=== PATIENT | male | born 1975 ===

== ENCOUNTER 2021-03-18 10:04 | Outpatient (REF) | payer OTHER, SELFPAY ==
--- NOTE | ~2021-03-18 | XR_ITS ---
EXAMINATION: XR LUMBOSACRAL SPINE CLINICAL INFORMATION: Right side COMPARISON: X-ray lumbar sacral spine June 2018 TECHNIQUE: Three views of the lumbosacral spine. FINDINGS: The vertebral bodies and posterior elements are normal. The disc spaces are preserved and the vertebral alignment is normal. The paraspinal soft tissues are normal. XR/XR lumbar spine 2-3V IMPRESSION: Unremarkable examination.
--- NOTE | ~2021-03-18 | XR_ITS ---
EXAMINATION: XR FOOT, RIGHT CLINICAL INFORMATION: Pain in right foot COMPARISON: None TECHNIQUE: AP, lateral, and oblique views of the right foot. FINDINGS: There is some mild soft tissue prominence over the medial aspect of the head of first metatarsal. Mild hallux valgus. Bones joints and soft tissues otherwise unremarkable XR/XR foot RT 2V IMPRESSION: Mild hallux valgus with soft tissue prominence medial to the head of the first metatarsal
[2021-03-18 11:32] LABS: MANUAL DIFF FLAG NO
[2021-03-18 11:51] LABS: Basophils Percent Auto 0.7 % (0-2); Eosinophils Absolute Auto 0.1 X10*3/uL (0.0-0.4); Eosinophils Percent Auto 1.8 % (0-4); Hematocrit 43.1 % (42-52); Hemoglobin 14.7 g/dl (14.0-18.0); Imm Gran Abs Auto 0.04 X10*3/uL (0.00-0.03); Imm Gran Pct Auto 0.7 % (0.0-0.4); Lymphocytes Absolute Auto 2.6 X10*3/uL (1.2-4.9); Lymphocytes Percent Auto 43.3 % (20-40); Mean Corpuscular HGB Conc 34.1 g/dl (31.0-36.0); Mean Corpuscular Hemoglobin 33.9 pg (27.0-33.0); Mean Corpuscular Volume 99.3 fL (80-98); Mean Platelet Volume 10.7 fL (9.4-12.4); Monocytes Absolute Auto 0.6 X10*3/uL (0.1-1.2); Monocytes Percent Auto 9.7 % (2-11); Neutrophils Absolute Auto 2.7 X10*3/uL (2.0-8.3); Neutrophils Percent Auto 43.8 % (45-73); Platelet Count 259 X10*3/uL (160-400); Red Blood Count 4.34 X10*6/uL (4.60-5.80); Red Cell Distribution Width 12.8 % (11.0-16.0); White Blood Count 6.1 X10*3/uL (4.8-10.8)
[2021-03-18 11:59] LABS: Alanine Aminotransferase 10 U/L (0-40); Albumin Level 4.5 g/dL (3.5-5.0); Alkaline Phosphatase 67 U/L (39-117); Anion Gap 11 (12-20); Aspartate Amino Transferase 16 U/L (5-37); Bilirubin Total 0.7 mg/dL (0.0-1.0); Blood Urea Nitrogen 9 mg/dL (9-16); Calcium 9.6 mg/dL (8.4-10.2); Carbon Dioxide 30 mmol/L (22-29); Chloride 104 mmol/L (96-108); Cholesterol 172 mg/dL; Estimated Glomerular Filt Rate > 60; Glucose Fasting 87 mg/dL (60-99); HDL Cholesterol 56 mg/dL; Iron 159 mcg/dL (45-160); LDL Cholesterol Calculated 85 mg/dl; Percent Iron Saturation 44 % (15-50); Potassium 4.5 mmol/L (3.3-5.1); Sodium 140 mmol/L (135-145); Total Iron Binding Capacity 364 mcg/dL (228-428); Total Protein 7.2 g/dL (6.5-8.0); Triglycerides 156 mg/dL; Unsaturated Iron Binding 205 ug/dL
[2021-03-18 12:33] LABS: Folate 13.8 ng/mL (> or = 4.0); Vitamin B12 530 pg/mL (200-900)
[2021-03-25 13:06] LABS: Vitamin D 25-OH, D2 <4 ng/mL; Vitamin D 25-OH, D3 21 ng/mL; Vitamin D 25-OH, Total 21 ng/mL (30-100)
== END 2021-03-18 10:05 | disposition home or self-care (01) ==
LOC: HO.XRAY 10:04
PROVIDERS: PCP Internal Medicine; Visit Provider Internal Medicine
DX: M54.31 Sciatica, right side (principal); M79.671 Pain in right foot; E55.9 Vitamin D deficiency, unspecified; R71.8 Other abnormality of red blood cells; E78.5 Hyperlipidemia, unspecified; D64.9 Anemia, unspecified; Z82.49 Family history of ischemic heart disease and other diseases of the circulatory system
CPT/HCPCS: 36415; 72100; 73620; 80053; 80061; 82306; 82607; 82746; 83540; 85025

== ENCOUNTER 2021-10-07 11:46 | Outpatient (REF) | payer OTHER, SELFPAY ==
[2021-10-08 14:57] LABS: H Pylori Breath Test Negative (Negative)
== END 2021-10-07 11:47 | disposition home or self-care (01) ==
LOC: HO.LNP 11:46
PROVIDERS: PCP Internal Medicine; Referring Provider Internal Medicine; Visit Provider Internal Medicine Gastroenterology
DX: K21.9 Gastro-esophageal reflux disease without esophagitis (principal); R19.4 Change in bowel habit; Z01.818 Encounter for other preprocedural examination
CPT/HCPCS: 83013; 99202

== ENCOUNTER → 2021-11-19 07:48 | Day surgery (SDC) | payer OTHER, SELFPAY ==
[2021-11-19 08:30] VITALS: BP 110/72; PULSE 56; RESP 16; TEMP 36.7; O2SAT 100; BMI 23.3
[2021-11-19] MEDS: Lactated Ringers 1,000 ML 50 ML IVCONT (08:42)
[2021-11-19 08:44] LABS: Amphetamine Screen Urine Not Detected (Not Detect); Barbiturates, Urine Not Detected (Not Detect); Benzodiazepines Screen Urine Not Detected (Not Detect); Cannabinoid Screen Urine Not Detected (Not Detect); Cocaine Screen Urine POSITIVE (Not Detect); Fentanyl, urine Not Detected (Not Detect); Opiate Screen Urine Not Detected (Not Detect); Phencyclidine Screen Urine Not Detected (Not Detect)
--- NOTE | 2021-11-19 09:11 | PC.NURSE ---
Positive urine cocaine tox screen. Evaluated by Dr Weems and Anesthesia, procedure cancelled by
== END ==
PROVIDERS: Anesthesiology; PCP Internal Medicine; Visit Provider Internal Medicine Gastroenterology
DX: R19.4 Change in bowel habit (principal); Z53.09 Procedure and treatment not carried out because of other contraindication; R82.5 Elevated urine levels of drugs, medicaments and biological substances; F14.90 Cocaine use, unspecified, uncomplicated; K21.9 Gastro-esophageal reflux disease without esophagitis; F17.210 Nicotine dependence, cigarettes, uncomplicated
CPT/HCPCS: 80307

== ENCOUNTER 2022-01-23 12:45 | Outpatient (REF) | payer OTHER, SELFPAY ==
--- NOTE | ~2022-01-23 | XR_ITS ---
EXAMINATION: XR ELBOW, RIGHT CLINICAL INFORMATION: Pain right elbow. COMPARISON: None TECHNIQUE: Right elbow is imaged in 3 views. FINDINGS: No fracture, dislocation, destructive process, or capsular effusion. Bony density is normal. No joint narrowing or erosive change. There is an olecranon spur measuring approximately 4 mm in thickness by 1.1 cm in length. XR/XR elbow RT min 3V IMPRESSION: Bulky olecranon spur.
--- NOTE | ~2022-01-23 | XR_ITS ---
EXAMINATION: XR KNEE, LEFT CLINICAL INFORMATION: Left knee pain COMPARISON: None TECHNIQUE: Three views of the left knee. FINDINGS: No fracture, dislocation, destructive process, or effusion. Hoffa's fat pad appears normal. There is no joint narrowing or erosive change or chondrocalcinosis. Axial view patella shows no lateralization or tilting. XR/XR knee LT 3V IMPRESSION: Normal left knee.
[2022-01-23 13:11] LABS: MANUAL DIFF FLAG NO
[2022-01-23 13:21] LABS: Basophils Percent Auto 0.4 % (0-2); Eosinophils Absolute Auto 0.1 X10*3/uL (0.0-0.4); Eosinophils Percent Auto 1.4 % (0-4); Hematocrit 37.5 % (42.0-52.0); Hemoglobin 12.8 g/dl (14.0-18.0); Imm Gran Abs Auto 0.01 X10*3/uL (0.00-0.03); Imm Gran Pct Auto 0.2 % (0.0-0.4); Lymphocytes Absolute Auto 2.6 X10*3/uL (1.2-4.9); Lymphocytes Percent Auto 47.2 % (20-40); Mean Corpuscular HGB Conc 34.1 g/dl (31.0-36.0); Mean Corpuscular Hemoglobin 33.4 pg (27.0-33.0); Mean Corpuscular Volume 97.9 fL (80.0-98.0); Mean Platelet Volume 10.7 fL (9.4-12.4); Monocytes Absolute Auto 0.5 X10*3/uL (0.1-1.2); Monocytes Percent Auto 8.1 % (2-11); Neutrophils Absolute Auto 2.4 x10*3/uL (2.0-8.3); Neutrophils Percent Auto 42.7 % (45-73); Platelet Count 246 X10*3/uL (160-400); Red Blood Count 3.83 X10*6/uL (4.60-5.80); White Blood Count 5.5 X10*3/uL (4.8-10.8)
[2022-01-23 13:45] LABS: Alanine Aminotransferase 11 U/L (0-40); Albumin Level 4.4 g/dL (3.5-5.0); Alkaline Phosphatase 63 U/L (39-117); Anion Gap 10 (12-20); Aspartate Amino Transferase 16 U/L (5-37); Bilirubin Total 0.4 mg/dL (0.0-1.0); Blood Urea Nitrogen 12 mg/dL (9-16); Calcium 9.5 mg/dL (8.4-10.2); Carbon Dioxide 28 mmol/L (22-29); Chloride 103 mmol/L (96-108); Estimated Glomerular Filt Rate > 60; Glucose Random 86 mg/dL (60-115); Potassium 4.2 mmol/L (3.3-5.1); Sodium 137 mmol/L (135-145); Total Protein 7.1 g/dL (6.5-8.0)
[2022-01-23 14:06] LABS: TSH reflex Free T4 0.27 uIU/mL (0.32-4.0)
[2022-01-23 14:46] LABS: Free T4 (Free Thyroxine) 1.01 ng/dL (0.71-1.85)
[2022-01-23 14:48] LABS: Folate 13.1 ng/mL (> or = 4.0); Vitamin B12 533 pg/mL (200-900)
[2022-01-26 07:46] LABS: HBS Num1 222.06 mIU/mL (0-7.99); HBc Num1 8.21 S/CO (0.00-0.79); HBsAGNum1 0.14 S/CO (0.00-0.99); HIV AB/AG Nonreactive (Nonreactive); HIV Num 1 0.07 S/CO (0.00-0.99); Hepatitis B Surface Antigen Negative (Negative); ~HepC Num1 0.08 S/CO (0.00-0.79); ~Hepatitis B Surface Antibody REACTIVE (Nonreactive); ~Hepatitis C Antibody Nonreactive (Nonreactive)
[2022-01-26 09:44] LABS: HBc Num2 8.22 S/CO; HBc Num3 8.35 S/CO; Hepatitis B Core Antibody Reactive (Nonreactive)
[2022-01-28 08:06] LABS: Hepatitis A Antibody IgM 0.32 Index (0-0.79); ~Hepatitis A Antibody IgM Nonreactive (Nonreactive)
== END 2022-01-23 12:46 | disposition home or self-care (01) ==
LOC: HO.XRAY 12:45
PROVIDERS: Internal Medicine Gastroenterology; PCP Internal Medicine; Visit Provider Nurse Practitioner Family
DX: Z11.4 Encounter for screening for human immunodeficiency virus [HIV] (principal); M25.521 Pain in right elbow; M25.562 Pain in left knee; K21.9 Gastro-esophageal reflux disease without esophagitis; R19.4 Change in bowel habit; D64.9 Anemia, unspecified; K92.0 Hematemesis
CPT/HCPCS: 36415; 73080; 73562; 80053; 82306; 82607; 82746; 83735; 84439; 84443; 85025; 86704; 86706; 86709; 86803; 87340; 87389

== ENCOUNTER 2022-02-12 10:51 | Day surgery (SDC) | payer OTHER, SELFPAY ==
[2022-02-05 16:31] VITALS: BMI 25.0
--- NOTE | 2022-02-11 09:35 | P.CONAN_ITS ---
Documented by User: Grace Lynch NP 02/11/22 09:41 HPI - Anesthesia Eval Consult details Narrative: 47yo M for Upper Endoscopy and Colonoscopy [facility] Active Problems Active Problems: All Active Problems (Updated 02/05/22 @ 13:02 by INA Last) Low vitamin D level (Acute) Low TSH level (Acute) Pruritic rash (Acute) Polyarthralgia (Acute) Ringing in left ear (Acute) Right elbow pain (Acute) Left knee pain (Acute) Altered bowel habits (Acute) Cough (Acute) Chronic GERD (Acute) Hematemesis (Acute) Right foot pain (Acute) Vertigo (Acute) Family history of hypertension (Acute) Right sided sciatica (Acute) Elevated MCV (Acute) Hypovitaminosis D (Acute) Past Medical History Medical History Chronic GERD Cough Elevated MCV Family history of hypertension Hematemesis Hypovitaminosis D Right foot pain Right sided sciatica Vertigo Family History Family History Father No problems noted. Mother Hypertension CVD (cardiovascular disease) Surgical History Surgical History History of esophagogastroduodenoscopy (EGD) No pertinent past surgical history Social History Social History Housing: Apartment Alcohol intake: current Alcohol intake frequency: a few times a month Alcohol type: beer Patient Tobacco Use Status: Current everyday Tobacco user Tobacco use type: Cigarette Cigarette Packs Per Day: 1 Cigarettes Per Day: 20.0 e-Cigarette/Vaping Use: Never Used Second Hand Smoke Exposure: Yes service: No Current occupational status: employed Current occupational exposures/hazards: No Cognitive needs: No Hearing needs: No Vision needs: Yes Meds Allergies Allergy/AdvReac Type Severity Reaction Status Date / Time No Known Allergies Allergy Verified 01/16/22 15:05 [No Known Allergies*] Exam Exam Date and Time: February 11, 2022 0935 Height,Weight and Vital Signs: Height 5 ft 6 in Weight 70.307 kg Pertinent Lab Results Pertinent Lab Results: Laboratory Tests 01/23/22 01/23/22 13:09 13:09 WBC 5.5 Hgb 12.8 L Hct 37.5 L Plt Count 246 Sodium 137 Potassium 4.2 Chloride 103 Carbon Dioxide 28 BUN 12 Creatinine 0.99 Assessment and Plan Assessment Anesthesia Assessment: Chart Reviewed Documented by User: Patel Castillo MD 02/12/22 16:09 HPI - Anesthesia Eval Consult details Narrative: 47yo M for Upper Endoscopy and Colonoscopy Substance abuse , Cocaine PMFSH Past Medical History Medical History Chronic GERD Cough Elevated MCV Family history of hypertension Hematemesis Hypovitaminosis D Right foot pain Right sided sciatica Vertigo Family History Family History Father No problems noted. Mother Hypertension CVD (cardiovascular disease) Family history of problems with anesthesia: No Surgical History Surgical History History of esophagogastroduodenoscopy (EGD) No pertinent past surgical history History of Problems with Anesthesia: No Social History Social History Housing: Apartment Alcohol intake: current Alcohol intake frequency: a few times a month Alcohol type: beer Patient Tobacco Use Status: Current everyday Tobacco user Tobacco use type: Cigarette Cigarette Packs Per Day: 1 Cigarettes Per Day: 20.0 e-Cigarette/Vaping Use: Never Used Second Hand Smoke Exposure: Yes service: No Current occupational status: employed Current occupational exposures/hazards: No Cognitive needs: No Hearing needs: No Vision needs: Yes Meds Allergies Allergy/AdvReac Type Severity Reaction Status Date / Time No Known Allergies Allergy Verified 01/16/22 15:05 [No Known Allergies*] Exam Airway Mallampati Class: III TM Dist: >3cm Neck ROM: Full Loose/Missing/Broken Teeth: Yes (Chipped teeth ) Heart: S1, S2 Lungs: b/l Assessment and Plan Assessment Anesthesia Assessment: Anesthesia Plan Discussed Final Anesthetic Review Family History of Problems with Anesthesia: No History of Problems with Anesthesia: No NPO: Yes ASA Class: III Final Preanesthetic Review: Meds/Allgs Chart Reviewed, Consent Obtained/Reviewed and Anes Risks/Benef Reviewed Patient Risk: Intermediate Procedure Risk: Intermediate Anesthetic Plan Anesthetic Plan: MAC: Disposition: Standard PACU
--- NOTE | 2022-02-12 11:28 | MHC.SHP ---
Pre-Procedural Eval Section A Date of Service: 02/12/22 Section B Chief Complaint: reflux disease,change in bowel habit, abdominal pa Relevant Family History (Specify if Yes): No Relevant Social History: Tobacco Use (coicaine use) Present Medications: see Short Stay Collaborative assessment Medical History: Significant History (Chronic GERD Cough Elevated MCV Family history of hypertension Hematemesis Hypovitaminosis D Right foot pain Right sided sciatica Vertigo) History of Previous Operations: Relevant previous surgery/procedure and date(s) (History of esophagogastroduodenoscopy (EGD)) Allergies: Allergies Allergy/AdvReac Type Severity Reaction Status Date / Time No Known Allergies Allergy Verified 01/16/22 15:05 [No Known Allergies*] Review of Systems Sugical H&P ROS: Negative: Constitution, Cardiovascular, Respiratory, Neurological, Psychiatric, Hem-Onc, Allergic/Immunologic, Gastrointestinal, Genitourinary, Musculoskeletal, Integumentary, Endocrine and Eyes/Ears/Nose/Throat Exam Surgical H&P Exam: Normal: HEENT, Normal: Heart, Normal: Lungs, Normal: Extremities, Normal: Abdomen, Normal: Skin and Normal: Neurological Plan Diagnosis/Plan: Unchanged I have reviewed the history and physical and performed a pertinent physical examination on my patient. No changes have occurred unless specified.
[2022-02-12 11:29] VITALS: BMI 25.0
[2022-02-12 11:33] VITALS: BP 116/74; PULSE 54; RESP 17; TEMP 36.6; O2SAT 99
[2022-02-12 11:39] VITALS: BMI 25.0
[2022-02-12 11:47] LABS: Amphetamine Screen Urine Not Detected (Not Detect); Barbiturates, Urine Not Detected (Not Detect); Benzodiazepines Screen Urine Not Detected (Not Detect); Cannabinoid Screen Urine Not Detected (Not Detect); Cocaine Screen Urine Not Detected (Not Detect); Fentanyl, urine Not Detected (Not Detect); Opiate Screen Urine Not Detected (Not Detect); Phencyclidine Screen Urine Not Detected (Not Detect)
[2022-02-12] MEDS: Lactated Ringers 1,000 ML 100 ML IVCONT (11:48)
--- NOTE | 2022-02-12 12:13 | PM.OP ---
Brief Operative Note Date of Service: 02/12/22 Pre-op diagnosis: abdominal pain, altered bowel habit, reflux Post-op diagnosis: same Procedure: see op note Surgeon: Chapis Weems MD Anesthesia: MAC Was an Solar Applications Development Engineer used for this Procedure?: No Estimated blood loss (mL): 0 Condition: stable Disposition: PACU
--- NOTE | 2022-02-12 12:14 | W.PM.OPN ---
Operative Note Operative Note Date of Service: 02/12/22 Narrative: Operative Information Procedure Description: EGD, Colonoscopy Indication: abdominal pain, altered bowel habit, reflux Anesthesia: MAC FLEXIBLE TRANSORAL UPPER GASTROINTESTINAL ENDOSCOPY AND COLONOSCOPY PROCEDURE NOTE UPPER ENDOSCOPY Consent: Indications for the procedure and potential complications of bleeding, perforation, reaction to medications and missed diagnosis were discussed with the patient and informed consent was obtained. Instrument: Olympus GIF H 190 J mid size upper endoscope Monitoring: Vital signs and clinical assessment, continuous EKG monitoring, Pulse oximetry, Carbon Dioxide monitoring and blood pressure monitoring were done throughout the procedure. Procedure: The patient was placed in the left lateral decubitis position and pre-procedure medications were administered and a bite block was placed. The endoscope was inserted into the mouth and advanced under direct vision to the third part of duodenum. A careful inspection was made as the upper endoscope was withdrawn including a retroflexed examination of the proximal stomach; Findings and interventions are described below. Findings: Larynx:normal Esophagus: GE junction at 38 cm, diaphragm hiatus at 38 cm, normal mucosa, bx taken from GEJ and random esophagus Stomach: Patchy erythema and erosions seen on lateral stomach wall in antrum. Biopsies were obtained. Grade 2 flap valve on retroflexed examination of the cardia. Duodenum: Normal bulb and descending duodenum, bx taken Intervention: Biopsies as noted above COLONOSCOPY Instrument: Olympus variable stiffness pediatric scope 190L Colonoscopy Monitoring: Vital signs and clinical assessment, continuous EKG monitoring, Pulse oximetry, Carbon Dioxide monitoring and blood pressure monitoring were done throughout the procedure. Colon withdrawal time was 10 minutes. Procedure: The patient was placed in the left lateral decubitis position and pre-procedure medications were administered. After a digital rectal examination of the ano-rectum, the video colonoscope was inserted into the rectum and advanced through the colon to the cecum/TI. The colonoscope was slowly withdrawn in a retrograde panoramic fashion and the colon mucosa was carefully examined including a retroflexed view of the rectum. Findings and interventions are described below. Procedure Difficulty: moderate Findings: Terminal Ileum-normal, bx taken Random colon bx taken, There appeared to be reduced colonic movement Cecum:normal Ascending Colon: few inverted diverticula seen Transverse Colon -normal Descending Colon:normal Sigmoid Colon: few small diverticula seen Rectum: Retroflexion with small internal hemorrhoids, grade I, 4-6 mm sessile polyp removed with cold forceps Anorectum - normal Colon preparation: [place] Bowel Preparation Scale Right colon; 2 Transverse colon: 3 Left colon; 2 (0 = Unprepared colon segment with mucosa not seen due to solid stool that cannot be cleared. 1 = Portion of mucosa of the colon segment seen, but other areas of the colon segment not well seen due to staining, residual stool and/or opaque liquid. 2 = Minor amount of residual staining, small fragments of stool and/or opaque liquid, but mucosa of colon segment seen well. 3 = Entire mucosa of colon segment seen well with no residual staining, small fragments of stool or opaque liquid) Impression and Post Procedure Diagnosis: Endoscopy Findings: erosive gastritis Colonoscopy Findings: colonic inertia diverticulosis internal hemorrhoids polyp Plan: Await Pathology results Repeat Colonoscopy in 5 years if adenomatous polyp, 10 yrs if hyperplastic or earlier if clinically indicated High fiber diet leaflet avoid straining at stool, epsom salts and sitz bath, anusol supps or cream if h pylori pos then treat Above findings were reviewed with the patient and relevant handouts were provided if indicated.
[2022-02-12 13:13] VITALS: BP 84/48; PULSE 64; RESP 16; TEMP 36.7; O2SAT 98
[2022-02-12 13:28] VITALS: BP 88/51; PULSE 52; RESP 14; O2SAT 99
[2022-02-12 13:43] VITALS: BP 93/58; PULSE 48; RESP 14; O2SAT 100
[2022-02-12 13:58] VITALS: BP 111/65; PULSE 48; RESP 16; O2SAT 100
[2022-02-12 14:13] VITALS: BP 117/76; PULSE 47; RESP 16; TEMP 36.2; O2SAT 99
== END 2022-02-12 14:53 | disposition home or self-care (01) ==
PROVIDERS: Nurse Practitioner; PCP Internal Medicine; Visit Provider Internal Medicine Gastroenterology
PROC: (CPT 45380; principal; 2022-02-12 12:30)
DX: K59.01 Slow transit constipation (principal); K62.1 Rectal polyp; K57.30 Diverticulosis of large intestine without perforation or abscess without bleeding; K64.0 First degree hemorrhoids; K21.9 Gastro-esophageal reflux disease without esophagitis; K29.60 Other gastritis without bleeding; K44.9 Diaphragmatic hernia without obstruction or gangrene; R79.89 Other specified abnormal findings of blood chemistry; E55.9 Vitamin D deficiency, unspecified; R42 Dizziness and giddiness; F14.90 Cocaine use, unspecified, uncomplicated; F17.210 Nicotine dependence, cigarettes, uncomplicated
CPT/HCPCS: 45380; 43239; 80307; 88305; 88342; J2250

== ENCOUNTER 2022-04-03 07:54 | Outpatient (REF) | payer OTHER, SELFPAY | END 2022-04-03 07:55 | disposition home or self-care (01) | LOC: HO.HOSX 07:54 | PROVIDERS: Visit Provider Physician Assistant | DX: Z13.89 Encounter for screening for other disorder (principal) ==

== ENCOUNTER 2022-05-22 07:37 | Outpatient (REF) | payer OTHER, SELFPAY | END 2022-05-22 07:38 | disposition home or self-care (01) | LOC: HO.HOSX 07:37 | PROVIDERS: Visit Provider Physician Assistant | DX: Z13.89 Encounter for screening for other disorder (principal) ==

== ENCOUNTER 2022-06-26 | Outpatient (REF) | payer OTHER, SELFPAY | END 2022-06-26 00:01 | disposition home or self-care (01) | LOC: HO.HOSX | PROVIDERS: Visit Provider Physician Assistant | DX: Z13.89 Encounter for screening for other disorder (principal) ==

== ENCOUNTER 2022-12-02 08:13 | Outpatient (REF) | payer OTHER, SELFPAY ==
[2022-12-02 12:06] LABS: Hematocrit 42.9 % (42.0-52.0); Hemoglobin 14.5 g/dl (14.0-18.0); Mean Corpuscular HGB Conc 33.8 g/dl (31.0-36.0); Mean Corpuscular Hemoglobin 33.6 pg (27.0-33.0); Mean Corpuscular Volume 99.5 fL (80.0-98.0); Mean Platelet Volume 10.7 fL (9.4-12.4); Platelet Count 292 X10*3/uL (160-400); Red Blood Count 4.31 X10*6/uL (4.60-5.80); Red Cell Distribution Width 12.9 % (11.0-16.0)
[2022-12-02 12:42] LABS: Free T4 (Free Thyroxine) 0.93 ng/dL (0.71-1.85); Thyroid Stimulating Hormone 0.44 uIU/mL (0.32-4.0)
[2022-12-02 12:43] LABS: Vitamin D 25-OH Total 16.7 ng/mL (>30)
[2022-12-02 13:08] LABS: Thyroid Stimulating Hormone 0.45 uIU/mL (0.32-4.0)
[2022-12-02 13:11] LABS: Anion Gap 15 (12-20)
[2022-12-02 13:16] LABS: Alanine Aminotransferase 18 U/L (0-40); Albumin Level 4.5 g/dL (3.5-5.0); Alkaline Phosphatase 73 U/L (39-117); Aspartate Amino Transferase 20 U/L (5-37); Bilirubin Direct 0.2 mg/dL (0.0-0.5); Bilirubin Total 0.5 mg/dL (0.0-1.0); Blood Urea Nitrogen 12 mg/dL (9-16); Calcium 9.5 mg/dL (8.4-10.2); Carbon Dioxide 28 mmol/L (22-29); Chloride 104 mmol/L (96-108); Cholesterol 199 mg/dL; Estimated Glomerular Filt Rate > 60; Glucose Random 94 mg/dL (60-115); HDL Cholesterol 60 mg/dL; LDL Cholesterol Calculated 119 mg/dl; Potassium 4.5 mmol/L (3.3-5.1); Sodium 142 mmol/L (135-145); Total Protein 7.1 g/dL (6.5-8.0); Triglycerides 101 mg/dL
== END 2022-12-02 08:14 | disposition home or self-care (01) ==
LOC: HO.HMGCLDS 08:13
PROVIDERS: PCP Internal Medicine; Visit Provider Internal Medicine
DX: R10.9 Unspecified abdominal pain (principal); E55.9 Vitamin D deficiency, unspecified; R79.89 Other specified abnormal findings of blood chemistry; E03.9 Hypothyroidism, unspecified
CPT/HCPCS: 36415; 80048; 80061; 80076; 82306; 84439; 84443; 85027

== ENCOUNTER 2022-12-03 14:53 | Outpatient (REF) | payer OTHER, SELFPAY ==
[2022-12-03 16:40] LABS: Vitamin D 25-OH Total 17.8 ng/mL (>30)
[2022-12-03 16:54] LABS: Folate 10.2 ng/mL (> or = 4.0); Prostate Specific Antigen 0.63 ng/mL (<0.05-4.0); Vitamin B12 740 pg/mL (200-900)
[2022-12-03 16:56] LABS: Cortisol Random 2.9 ug/dL
[2022-12-03 17:39] LABS: Appearance Urine Clear; Color Urine Yellow; Glucose Urine UA Negative (Negative); Leukocyte Esterase Urine Negative (Negative); Nitrite Urine Negative (Negative); PH 6.5 (5.0-9.0); Urine Blood Negative (Negative); Urine Ketones Negative (Negative); Urine Protein Negative (Neg-Trace)
[2022-12-05 04:28] LABS: Prolactin 6.3 ng/mL (2.0-18.0); Triiodothyronine T3 Free 3.3 pg/mL (2.3-4.2)
[2022-12-08 13:08] LABS: Triiodothyronine T3 Reverse 14 ng/dL (8-25)
== END 2022-12-03 14:54 | disposition home or self-care (01) ==
LOC: HO.LAB 14:53
PROVIDERS: Internal Medicine Gastroenterology; PCP Internal Medicine; Visit Provider Nurse Practitioner Family
DX: Z00.00 Encounter for general adult medical examination without abnormal findings (principal); Z12.5 Encounter for screening for malignant neoplasm of prostate; R30.0 Dysuria; R35.89 Other polyuria; R79.89 Other specified abnormal findings of blood chemistry; E55.9 Vitamin D deficiency, unspecified
CPT/HCPCS: 36415; 81003; 82306; 82533; 82607; 82746; 84146; 84153; 84481; 84482

== ENCOUNTER 2023-05-31 13:34 | Outpatient (AMB) | payer OTHER, SELFPAY ==
--- NOTE | 2023-05-31 13:41 | A.OFFPC_ITS ---
Vital Signs 05/31/23 13:42 Height 5 ft 6 in Weight 148 lb BMI 23.9 BP 100/62 Blood Pressure Location Lt brachial Position Sitting Pulse 65 Pulse Source Pulse Oximeter Pulse Oximetry (%) 98 Oxygen Delivery Method Room Air Intake Visit Reasons: Sinus infection Intake Note: Pt is here for ongoing sinus infection and chest congestion for about a month and getting worse. Bead Supervisor Required: No Accompanied by: Spouse Allergies No Known Allergies [No Known Allergies*] Allergy (Verified 05/31/23 13:50) Medication List - Last Reconciled 05/31/23 by Jacob Anderson PA-C acetaminophen 1,000 mg PO Q6H PRN cholecalciferol (vitamin D3) 50 mcg PO DAILY diclofenac sodium 1% (Arthritis Pain (diclofenac)) 2 grams topical QID PRN esomeprazole magnesium (Nexium) 40 mg PO DAILY sennosides-docusate sodium 8.6-50 mg (Senna-S) 1 tab-cap PO BEDTIME PRN sucralfate 1 g PO BID Tobacco use date assessed: 12/03/22 Dental Screening Dental Screen Date: 05/31/23 Did you have a dental visit in the last 12 months?: Yes Did you have a dental problem in the last 6 months where you did not have access to dental care?: No Was dental information given to patient?: Patient has dentist HPI Sinus infection HPI Details Patient is a 48-year-old male here today for sick visit. This the 1st time I am meeting this 48-year-old male with a past medical history significant for GERD, Tobacco dependency,low vitamin-D level anxiety disorder. Patient reports he has been having sinus pressure, headaches and mild cough over the last 3 weeks. Has use [id number] cough cold medication without much relief. Unfortunately continues to smoke about a pack of cigarettes per day. Otherwise denies any fever, productivity of cough ect.. [facility] Medical History Chronic GERD Cough Elevated MCV Family history of hypertension Hematemesis Hypovitaminosis D Right foot pain Right sided sciatica Vertigo Surgical History Hx of colonoscopy History of esophagogastroduodenoscopy (EGD) No pertinent past surgical history Family History Father No problems noted. Mother Hypertension CVD (cardiovascular disease) Social History Housing: Apartment Alcohol intake: current Alcohol intake frequency: a few times a month Alcohol type: beer Patient Tobacco Use Status: Current everyday Tobacco user Tobacco use type: Cigarette Cigarette Packs Per Day: 1 Cigarettes Per Day: 20.0 e-Cigarette/Vaping Use: Never Used Second Hand Smoke Exposure: Yes service: No Current occupational status: employed Current occupational exposures/hazards: No Cognitive needs: No Hearing needs: No Vision needs: Yes Questionnaire Thrive Questionnaire Date Thrive assessed: 12/03/22 DECLAN-7 AMB Questionnaire DECLAN-7 Date DECLAN - 7 assessed: 12/03/22 Source: Developed by Drs. Ish Velazco, Leda Lara, Nate Schaefer and colleagues, with an educational neema from [employer]. Review of Systems Const Denies headache(s) Eyes Denies loss of vision ENT Denies vertigo, Denies dizziness, Denies headache(s), Reports nasal discharge, Reports sinus pressure and Denies sore throat Card Denies chest pain, Denies leg edema and Denies lightheadedness Resp Reports cough, Denies hemoptysis and Denies wheezing GI Denies abdominal pain, Denies melena, Denies constipation, Denies diarrhea and Denies vomiting Denies dysuria, Denies urinary frequency and Denies urinary urgency Musc Denies arthralgias, Denies joint swelling, Denies numbness and Denies tingling Neuro Denies Abnormal speech present, Denies behavioral changes, Denies vertigo, Denies dizziness, Denies headache(s), Denies loss of vision, Denies memory loss, Denies numbness and Denies tingling Psych Denies anxiety, Denies behavioral changes, Denies depression, Denies memory loss and Denies panic attacks Michael/Lymph Denies easy bleeding and Denies easy bruising Aller/Immun Denies wheezing Physical exam (Primary Care) Vital Signs: Last Vital Signs Pulse 65 05/31/23 13:42 BP 100/62 05/31/23 13:42 Pulse Ox 98 05/31/23 13:42 Oxygen Delivery Method Room Air 05/31/23 13:42 BMI result Body Mass Index 23.9 Tobacco/Smoking Status: Tobacco use Status Tobacco use date assessed 12/03/22 05/31/23 13:47 Patient Tobacco Use Status Current everyday Tobacco 05/31/23 13:47 Tobacco use type Cigarette 05/31/23 13:47 e-Cigarette/Vaping Use Never Used 05/31/23 13:47 Thrive Assessment: Date of Thrive Assessment Date Thrive assessed 12/03/22 05/31/23 13:47 Const General: healthy appearing, no acute distress, alert and awake Nutritional Appearance: well nourished Orientation/consciousness: oriented to person, oriented to place and oriented to time HENMT Other: NASAL CONGESTION NOTED Ears: TM's normal bilaterally General nose exam: Normal nasal mucous membranes and turbinates present Face and sinus: Yes sinus tenderness Eyes Conjunctivae: conjunctivae normal Sclerae: sclerae normal Pupils: Equal, round and reactive pupils present Neck Neck: Yes no lymphadenopathy and Yes no JVD Thyroid: Thyroid normal Carotids: no bruits Resp Effort & Inspection: normal respiratory effort and not tachypneic Auscultation: no crackles, no rales, no rhonchi and no wheezes Cardio Rate: regular rate Rhythm: regular rhythm Heart sounds: no murmurs and normal S1 and S2 GI Palpation (GI): Soft to palpation, nontender, no hepatomegaly and no splenomegaly Auscultation: normal bowel sounds Skin General skin exam: no rashes or lesions noted and dry skin Neuro General: oriented to person, oriented to place and oriented to time Cranial nerves: Yes Equal, round and reactive pupils present Speech: No Abnormal speech present Gait exam (Neuro): Normal gait present Motor exam (neuro): no tremor noted Extrem Right upper extremity: full ROM Left upper extremity: full ROM Right lower extremity: full ROM; no edema Left lower extremity: full ROM; no edema Psych Mental Status: mental status grossly normal Speech and movement: Normal speech and movement present Affect: normal affect Attitude: cooperative Thought process: Normal thought process present Assessment and Plan Assessment & Plan (1) Sinusitis: Code(s): J32.9 - Chronic sinusitis, unspecified Qualifiers: Chronicity: acute Recurrence: non-recurrent Sinusitis location: frontal Qualified Code(s): J01.10 - Acute frontal sinusitis, unspecified Plan: Patient's signs symptoms most consistent with a sinus infection. Will supply patient with antibiotic and advised on nasal spray (2) Bronchitis: Code(s): J40 - Bronchitis, not specified as acute or chronic Plan: patient's cough likely secondary to postnasal drip. Though is a daily pack-a-day smoker thus will send for x-ray of chest to rule out any pulmonary infiltrate. (3) Tobacco dependence: Code(s): F17.200 - Nicotine dependence, unspecified, uncomplicated Plan: patient is willing to start nicotine patches to help him quit smoking. Orders: Orders XR chest 2V 05/31/23 J40 - Bronchitis, not specified as acute or chronic SARS-CoV2/FLU/RSV 05/31/23 J01.10 - Acute frontal sinusitis, unspecified Medications: New amoxicillin-pot clavulanate 875-125 mg 1 tab PO BID 7 days 14 tabs 0RF J01.10 - Acute frontal sinusitis, unspecified nicotine 1 patch transdermal DAILY 14 days 14 ea 0RF F17.200 - Nicotine dependence, unspecified, uncomplicated nicotine 1 patch transdermal DAILY 14 days 14 ea 0RF F17.200 - Nicotine dependence, unspecified, uncomplicated Refilled esomeprazole magnesium (Nexium) 40 mg PO DAILY 30 caps 5RF K21.9 - Gastro- esophageal reflux disease without esophagitis Coding Level of Care Code Est Pt Level 3 (36406) Diagnoses Acute non-recurrent frontal sinusitis J01.10 Chronicity: acute Recurrence: non-recurrent Sinusitis location: frontal Bronchitis J40 Tobacco dependence F17.200
[2023-05-31 13:42] VITALS: BP 100/62; PULSE 65; O2SAT 98; BMI 23.9
== END 2023-05-31 14:02 | disposition home or self-care (01) ==
PROVIDERS: PCP Internal Medicine; Visit Provider Physician Assistant
DX: J01.10 Acute frontal sinusitis, unspecified (principal); J40 Bronchitis, not specified as acute or chronic; F17.200 Nicotine dependence, unspecified, uncomplicated
CPT/HCPCS: 99213

== ENCOUNTER 2023-05-31 14:10 | Outpatient (REF) | payer OTHER, SELFPAY ==
--- NOTE | ~2023-05-31 | XR_ITS ---
EXAMINATION: XR CHEST CLINICAL INFORMATION: Bronchitis COMPARISON: None TECHNIQUE: 2 views of the chest. FINDINGS: Heart size normal. No focal consolidation to suggest pneumonia. No pleural effusion. Degenerative changes in the thoracic spine. XR/XR knee standing BI IMPRESSION: No focal consolidation to suggest pneumonia.
--- NOTE | ~2023-05-31 | XR_ITS ---
EXAMINATION: XR CHEST CLINICAL INFORMATION: Bronchitis COMPARISON: None TECHNIQUE: 2 views of the chest. FINDINGS: Heart size normal. No focal consolidation to suggest pneumonia. No pleural effusion. Degenerative changes in the thoracic spine. XR/XR chest 2V IMPRESSION: No focal consolidation to suggest pneumonia.
[2023-05-31 15:00] LABS: Influenza A PCR NEGATIVE (Negative); Influenza B PCR NEGATIVE (Negative); Resp Syncy Virus RNA Qual PCR NEGATIVE (Negative); SARS COV2 PCR INHOUSE NEGATIVE (Negative)
== END 2023-05-31 14:11 | disposition home or self-care (01) ==
LOC: HO.XRAY 14:10
PROVIDERS: PCP Physician Assistant; Visit Provider Physician Assistant
DX: J40 Bronchitis, not specified as acute or chronic (principal); J01.10 Acute frontal sinusitis, unspecified; M25.569 Pain in unspecified knee; Z20.822 Contact with and (suspected) exposure to COVID-19
CPT/HCPCS: 0241U; 71046; 73565

== ENCOUNTER 2023-06-07 16:27 | Outpatient (AMB) | payer OTHER, SELFPAY ==
[2023-06-07 16:33] VITALS: BP 110/78; BMI 24.4
--- NOTE | 2023-06-07 16:33 | MHC.PC.OV ---
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 Accompanied by: Significant Other Allergies No Known Allergies [No Known Allergies*] Allergy (Verified 06/07/23 16:53) Medication List - Last Reconciled 06/07/23 by Maria Daugherty MD acetaminophen 1,000 mg PO Q6H PRN amoxicillin-pot clavulanate 875-125 mg 1 tab PO BID 7 days nicotine 1 patch transdermal DAILY 14 days sucralfate 1 g PO BID Tobacco use date assessed: 12/03/22 Dental Screening Dental Screen Date: 06/07/23 Did you have a dental visit in the last 12 months?: Yes Did you have a dental problem in the last 6 months where you did not have access to dental care?: No Was dental information given to patient?: Patient has dentist HPI HPI Comments History of Present Illness Details Patient with chronic GERD that comes today accompanied by complaining of chronic sinusitis that has been present for over a week. No fever or cough. Will start Carafate for his GERD. Endoscopy done a year ago. For sinusitis I will order nasal spray. PFS Medical History Cough Chronic GERD Hematemesis Right foot pain Vertigo Family history of hypertension Right sided sciatica Elevated MCV Hypovitaminosis D Surgical History Hx of colonoscopy History of esophagogastroduodenoscopy (EGD) No pertinent past surgical history Family History Father No problems noted. Mother Hypertension CVD (cardiovascular disease) Social History Housing: Apartment Alcohol intake: current Alcohol intake frequency: a few times a month Alcohol type: beer Patient Tobacco Use Status: Current everyday Tobacco user Tobacco use type: Cigarette Cigarette Packs Per Day: 1 Cigarettes Per Day: 20.0 e-Cigarette/Vaping Use: Never Used Second Hand Smoke Exposure: Yes service: No Current occupational status: employed Current occupational exposures/hazards: No Cognitive needs: No Hearing needs: No Vision needs: Yes Questionnaire Thrive Questionnaire Date Thrive assessed: 12/03/22 DECLAN-7 AMB Questionnaire DECLAN-7 Date DECLAN - 7 assessed: 12/03/22 Source: Developed by Drs. Ish Velazco, Leda Lara, Nate Schaefer and colleagues, with an educational neema from [employer]. Review of Systems Const All systems reviewed & are unremarkable except as noted in HPI and below Eyes Reports no additional complaints, Denies change in vision and Denies other visual disturbances Card Denies chest pain at rest, Denies chest pain with activity, Denies edema, Denies irregular heart rhythm, Denies claudication, Denies dyspnea, Denies dyspnea on exertion, Denies orthopnea, Denies paroxysmal nocturnal dyspnea and Denies slow heart rate Resp Denies cough, Denies dyspnea and Denies dyspnea on exertion GI Denies abdominal pain, Denies change in bowel habits, Denies excessive flatus, Denies nausea and Denies vomiting Denies urinary hesitancy, Denies urinary incontinence and Denies urinary urgency Musc Denies abnormal gait, Denies atrophy, Denies deformity and Denies limited range of motion Skin/Breast Denies bleeding lesions, Denies changing lesions and Denies rash Neuro Denies abnormal gait and Denies lack of coordination Physical exam (Primary Care) Vital Signs: Last Vital Signs BP 110/78 06/07/23 16:33 BMI result Body Mass Index 24.4 Tobacco/Smoking Status: Tobacco use Status Tobacco use date assessed 12/03/22 06/07/23 16:39 Patient Tobacco Use Status Current everyday Tobacco 06/07/23 16:39 Tobacco use type Cigarette 06/07/23 16:39 e-Cigarette/Vaping Use Never Used 06/07/23 16:39 Thrive Assessment: Date of Thrive Assessment Date Thrive assessed 12/03/22 06/07/23 16:39 Eyes General: appearance normal, both eyes and all related structures Eyelids: Yes eyelids normal Conjunctivae: conjunctivae normal Neck Neck: Yes normal visual inspection and Yes supple Resp Effort & Inspection: normal respiratory effort Auscultation: clear to auscultation bilaterally Cardio Jugular venous distension: no JVD Rate: regular rate Rhythm: regular rhythm Heart sounds: S1 normal heart sound present and S2 normal heart sound present Extrem General: Yes full ROM Assessment and Plan Assessment & Plan (1) Chronic GERD: Code(s): K21.9 - Gastro-esophageal reflux disease without esophagitis Plan: Start Carafate. (2) Sinusitis: Code(s): J32.9 - Chronic sinusitis, unspecified Qualifiers: Sinusitis location: frontal Chronicity: acute Recurrence: non-recurrent Qualified Code(s): J01.10 - Acute frontal sinusitis, unspecified Plan: Start Flonase as needed. Medications: New sucralfate 10 mL PO BID 600 mL 1RF 30 days loratadine (Allergy Relief (loratadine)) 10 mg PO DAILY 30 tabs 1RF 30 days fluticasone propionate 50 mcg/actuation (Flonase Allergy Relief) administer into each nostril 1 spray intranasal DAILY 16 grams 0RF 30 days Discontinued sucralfate Discontinued Reason: Patient Completed Course 1 g PO BID 60 tabs 1RF R19.7 - Diarrhea, unspecified Coding Level of Care Code Est Pt Level 3 (67461) Diagnoses Chronic GERD K21.9 Acute non-recurrent frontal sinusitis J01.10 Sinusitis location: frontal Chronicity: acute Recurrence: non-recurrent Time Spent (min) 19
== END 2023-06-07 17:01 | disposition home or self-care (01) ==
PROVIDERS: Visit Provider Internal Medicine
DX: K21.9 Gastro-esophageal reflux disease without esophagitis (principal); J01.10 Acute frontal sinusitis, unspecified
CPT/HCPCS: 99213

== ENCOUNTER 2023-07-13 07:48 | Outpatient (AMB) | payer OTHER, SELFPAY ==
--- NOTE | 2023-07-13 07:59 | MHC.PC.OV ---
Vital Signs 07/13/23 08:00 Height 5 ft 6 in Weight 151 lb BMI 24.4 BP 110/62 Blood Pressure Location Lt brachial Position Sitting Pulse 72 Pulse Source Pulse Oximeter Pulse Oximetry (%) 98 Oxygen Delivery Method Room Air Intake Visit Reasons: Sinus infection Technology Assistant Required: Yes Technology Assistant Name: [id number] Contance Information Interpreted: non-clinical & clinical Allergies No Known Allergies [No Known Allergies*] Allergy (Verified 07/13/23 08:15) Medication List - Last Reconciled 07/13/23 by INA Michaud acetaminophen 1,000 mg PO Q6H PRN fluticasone propionate 50 mcg/actuation (Flonase Allergy Relief) 1 spray intranasal DAILY 30 days loratadine (Allergy Relief (loratadine)) 10 mg PO DAILY 30 days nicotine 1 patch transdermal DAILY 14 days sucralfate 10 mL PO BID 30 days Tobacco use date assessed: 12/03/22 Dental Screening Dental Screen Date: 07/13/23 Did you have a dental visit in the last 12 months?: Yes Did you have a dental problem in the last 6 months where you did not have access to dental care?: No Was dental information given to patient?: Patient has dentist HPI HPI Comments History of Present Illness Details 40-year-old female past medical history significant for GERD, low vitamin-D, cocaine use disorder, anxiety depression. Patient presents today for problem visit for sinus infection. Patient reports nasal congestion x1 month. Patient reports received antibiotic in May for treatment of sinus infection with minimal improvement. Patient reports recurring and nasal congestion with left side is frontal sinus pain and pressure, patient reports fevers nightly however he does not take his temperature but states he gets really warm and sweaty. Patient continues to use cocaine on the weekends. [facility] Medical History Cough Chronic GERD Hematemesis Right foot pain Vertigo Family history of hypertension Right sided sciatica Elevated MCV Hypovitaminosis D Surgical History Hx of colonoscopy History of esophagogastroduodenoscopy (EGD) No pertinent past surgical history Family History Father No problems noted. Mother Hypertension CVD (cardiovascular disease) Social History Housing: Apartment Alcohol intake: current Alcohol intake frequency: a few times a month Alcohol type: beer Patient Tobacco Use Status: Current everyday Tobacco user Tobacco use type: Cigarette Cigarette Packs Per Day: 1 Cigarettes Per Day: 20.0 e-Cigarette/Vaping Use: Never Used Second Hand Smoke Exposure: Yes service: No Current occupational status: employed Current occupational exposures/hazards: No Cognitive needs: No Hearing needs: No Vision needs: Yes Questionnaire PHQ-9 Over the last 2 weeks, how often have you been bothered by any of the following problems? 1. Little interest or pleasure in doing things: nearly every day 2. Feeling down, depressed, or hopeless: nearly every day 3. Trouble falling or staying asleep, or sleeping too much: nearly every day 4. Feeling tired or having little energy: nearly every day 5. Poor appetite or overeating: nearly every day 6. Feeling bad about yourself - or that you are a failure or have let yourself or your family down: nearly every day 7. Trouble concentrating on things, such as reading the newspaper or watching television: nearly every day 8. Moving or speaking so slowly that other people could have noticed. Or the opposite - being so fidgety or restless that you have been moving around a lot more than usual: nearly every day 9. Thoughts that you would be better off or of hurting yourself in some way: nearly every day Total score: 27 Depression Screening Interpretation: Positive Depression Screening Follow-up: Community Mental Health Worker F/U Depression Screening Done: Yes 20023 - PHQ-9 Billing: Yes Source: Developed by Drs. Ish Velazco, Leda Lara, Nate Schaefer and colleagues, with an educational neema from [employer]. Thrive Questionnaire Date Thrive assessed: 12/03/22 AUDIT C Alcohol Use Questionnaire (AUDIT-C) 1. How often do you have a drink containing alcohol?: 2-3 times a week 2. How many drinks containing alcohol do you have on a typical day when you are drinking?: 3 or 4 3. How often do you have six or more drinks on one occasion?: Never Total Score: 4 Score Reviewed/Action Taken: Yes DECLAN-7 AMB Questionnaire DECLAN-7 Date DECLAN - 7 assessed: 12/03/22 Source: Developed by Drs. Ish Velazco, Leda Lara, Nate Schaefer and colleagues, with an educational neema from [employer]. Review of Systems Const Denies chills, Denies fatigue, Reports fever(s) and Denies poor appetite Eyes Denies no additional complaints ENT Reports Normal hearing present, Denies otalgia, Reports nasal congestion, Reports nasal discharge, Reports sinus pain, Reports sinus pressure and Denies sore throat Card Denies chest pain, Denies syncope, Denies rapid heart rate and Denies dyspnea Resp Denies cough and Denies dyspnea GI Denies change in stool character, Denies constipation, Denies diarrhea, Denies nausea and Denies vomiting Denies dysuria, Denies urinary frequency and Denies urinary urgency Neuro Reports Normal hearing present, Denies confusion and Denies syncope Psych Denies confusion Endo Denies fatigue Physical exam (Primary Care) Vital Signs: Last Vital Signs Pulse 72 07/13/23 08:00 BP 110/62 07/13/23 08:00 Pulse Ox 98 07/13/23 08:00 Oxygen Delivery Method Room Air 07/13/23 08:00 BMI result Body Mass Index 24.4 Tobacco/Smoking Status: Tobacco use Status Tobacco use date assessed 12/03/22 07/13/23 08:03 Patient Tobacco Use Status Current everyday Tobacco 07/13/23 08:03 Tobacco use type Cigarette 07/13/23 08:03 e-Cigarette/Vaping Use Never Used 07/13/23 08:03 PHQ-9: PHQ-9 Score PHQ-9: Total score 27 07/13/23 08:17 Depression Screening Interpretation: Positive Depression Screening Follow-up: Community Mental Health Worker F/U Thrive Assessment: Date of Thrive Assessment Date Thrive assessed 12/03/22 07/13/23 08:03 Const General: No confusion Orientation/consciousness: No confusion HENMT Head: Yes normocephalic and Yes atraumatic General nose exam: Nasal discharge present clear Face and sinus: Yes sinus tenderness Eyes Conjunctivae: conjunctivae normal Chest Chest palpation & inspection: normal inspection of the chest Resp Effort & Inspection: normal respiratory effort Auscultation: clear to auscultation bilaterally, no crackles, no rhonchi and no wheezes Cardio Rate: regular rate Rhythm: regular rhythm Heart sounds: S1 normal heart sound present and S2 normal heart sound present GI Inspection: Yes normal to inspection Neuro General: No confusion Cranial nerves: Yes Normal hearing present Extrem General: No edema Assessment and Plan Assessment & Plan (1) Sinusitis: Code(s): J32.9 - Chronic sinusitis, unspecified Qualifiers: Chronicity: acute Recurrence: non-recurrent Sinusitis location: frontal Qualified Code(s): J01.10 - Acute frontal sinusitis, unspecified Plan: Augmentin sent to patient's pharmacy. Patient advised to continue on Flonase and Claritin and use a humidifier at night to put moisture in the ear. (2) Chronic GERD: Code(s): K21.9 - Gastro-esophageal reflux disease without esophagitis Plan: Continue on sucralfate. (3) Cocaine use disorder: Code(s): F14.10 - Cocaine abuse, uncomplicated Plan: Patient advised to stop using cocaine as he snorts this on the weekends as is could lead to ongoing sinus problems amongst other more serious problems. Plan Keep scheduled follow-up with PCP. Medications: Refilled amoxicillin-pot clavulanate 875-125 mg 1 tab PO BID 7 days 14 tabs 0RF J01.10 - Acute frontal sinusitis, unspecified Coding Level of Care Code Est Pt Level 3 (37788) Diagnoses Acute non-recurrent frontal sinusitis J01.10 Chronicity: acute Recurrence: non-recurrent Sinusitis location: frontal Chronic GERD K21.9 Cocaine use disorder F14.10
[2023-07-13 08:00] VITALS: BP 110/62; PULSE 72; O2SAT 98; BMI 24.4
== END 2023-07-13 08:24 | disposition home or self-care (01) ==
PROVIDERS: PCP Physician Assistant; Visit Provider Nurse Practitioner Family
DX: J01.10 Acute frontal sinusitis, unspecified (principal); K21.9 Gastro-esophageal reflux disease without esophagitis; F14.10 Cocaine abuse, uncomplicated
CPT/HCPCS: 99213

== ENCOUNTER 2023-08-23 09:57 | Outpatient (AMB) | payer OTHER, SELFPAY ==
[2023-08-23 11:20] VITALS: BP 110/70; PULSE 86; TEMP 36.7; O2SAT 98; BMI 23.8
--- NOTE | 2023-08-23 11:20 | MHC.OFFWIV ---
Intake Vital Signs 08/23/23 11:20 Height 5 ft 6 in Weight 66.848 kg BMI 23.8 BP 110/70 Blood Pressure Location Rt brachial Position Sitting Pulse 86 Pulse Source Pulse Oximeter Temp 98.0 F Temp Source Temporal Artery Scan Pulse Oximetry (%) 98 Oxygen Delivery Method Room Air Intake Visit Reasons: Ep, headache, congestion ([phone]) Intake Note: pt is here for c.o headache, and congestion Patient Tobacco Use Status: Current everyday Tobacco user Allergies No Known Allergies [No Known Allergies*] Allergy (Verified 08/23/23 11:20) Do you need a note to return to daycare/school/sports/work: Yes HPI HPI Comments History of Present Illness Details 48-year-old male who presents with fatigue, malaise, myalgias, congestion, frontal headache worse on the left, subjective fevers and chills that started yesterday. History of sinusitis.? No known sick contacts.? Denies chest pain, shortness of breath, nausea, vomiting, abdominal pain, vision change, dizziness, weakness, changes in bowel or urinary habits Physical exam benign NIH stroke scale 0 History and physical exam concerning for viral illness versus versus flu versus COVID versus RSV versus sinusitis ( most likely).? Unlikely pneumonia, ACS, dissection, pulmonary embolism, acute respiratory distress. Unlikely intracranial hemorrhage, stroke, posterior stroke, meningitis or encephalitis Plan at this time viral testing will discharge patient home with antibiotics. Educated patient on diagnosis and treatment plan, answered all question, patient verbalizes understanding.? At this time patient will be discharged home, advised to return with new or worsening symptoms.? Educated on worrisome signs and symptoms and when to return.? At this time I feel comfortable discharge home. [facility] Medical History Cough Chronic GERD Hematemesis Right foot pain Vertigo Family history of hypertension Right sided sciatica Elevated MCV Hypovitaminosis D Surgical History Hx of colonoscopy History of esophagogastroduodenoscopy (EGD) No pertinent past surgical history Family History Father No problems noted. Mother Hypertension CVD (cardiovascular disease) Social History Housing: Apartment Alcohol intake: current Alcohol intake frequency: a few times a month Alcohol type: beer Patient Tobacco Use Status: Current everyday Tobacco user Tobacco use type: Cigarette Cigarette Packs Per Day: 1 Cigarettes Per Day: 20.0 e-Cigarette/Vaping Use: Never Used Second Hand Smoke Exposure: Yes service: No Current occupational status: employed Current occupational exposures/hazards: No Cognitive needs: No Hearing needs: No Vision needs: Yes Review of Systems Const Details: Constitutional : No Weight loss, No Fever, No Chills, No Fatigue, No Malaise ENT/Mouth : No sore throat, No Rhinorrhea, + congestion Eyes: No Eye Pain, No Swelling, No Redness Cardiovascular : No Chest Pain, No SOB, No Dyspnea on Exertion, No Orthopnea, No Edema, No Palpitations Respiratory : No Cough, No Sputum, No Wheezing Gastrointestinal : No Nausea, No Vomiting, No Diarrhea, No Constipation, No abdominal Pain, No Hematochezia, No Melena Genitourinary : No Dysuria, No Urinary Frequency, No Hematuria, Musculoskeletal : No joint pain, No Myalgias, No Joint Swelling Skin : No Skin Lesions, No rash Neuro : No Weakness, No Numbness, No Dizziness, + Headache Psych : No Anxiety/Panic, No Depression All other systems reviewed and are negative All systems reviewed & are unremarkable except as noted in HPI and below Physical Exam Vital Signs: Last Vital Signs Temp 98.0 F 08/23/23 11:20 Pulse 86 08/23/23 11:20 BP 110/70 08/23/23 11:20 Pulse Ox 98 08/23/23 11:20 Oxygen Delivery Method Room Air 08/23/23 11:20 BMI result Body Mass Index 23.8 Vital signs stable Appearance: Alert.? Oriented X3.? No acute distress.? Head: Normocephalic, atraumatic, no step-offs or deformities Eyes: Pupils equal, round and reactive to light.? Extraocular movements intact pain-free ENT: Pharynx normal.? Neck: Normal inspection.? Neck supple.? No nuchal rigidity or meningeal signs. CVS: Normal heart rate and rhythm.? Pulses normal.? Respiratory: No respiratory distress.? Breath sounds normal.? Abdomen: Soft and nontender.? Skin: Skin warm and dry.? Normal skin color.? Normal skin turgor.? Extremities: No lower extremity edema.? No calf ttp. 5/5 strength to bilateral upper and lower extremities Neuro: Oriented X 3.? No motor deficit.? No sensory deficit. CN 2-12 intact . Normal [id number], [id number] steady tandem gait normal coordination Assessment & Plan Assessment & Plan (1) Sinusitis: Code(s): J32.9 - Chronic sinusitis, unspecified Qualifiers: Sinusitis location: frontal Chronicity: acute Recurrence: non-recurrent Qualified Code(s): J01.10 - Acute frontal sinusitis, unspecified Plan Take your medications as prescribed. If you were prescribed antibiotics today, it is important that you take your medication to their entirety, do not skip any doses, do not finish them early. Follow-up with your primary care provider this week. Return to the emergency department with new or worsening symptoms. Such as fevers, chills, chest pain, shortness of breath, nausea, vomiting, dizziness, headache, vision changes, lethargy In case of emergency call 911 Orders: Orders SARS-CoV2/FLU/RSV Today B34.9 - Viral infection, unspecified Medications: New amoxicillin-pot clavulanate 875-125 mg 1 tab PO BID 10 days 20 tabs 0RF prednisone 40 mg (2 x 20 mg) PO DAILY 10 tabs 0RF 5 days Coding Level of Care Code Est Pt Level 3 (61948) Diagnoses Acute non-recurrent frontal sinusitis J01.10 Sinusitis location: frontal Chronicity: acute Recurrence: non-recurrent
== END 2023-08-23 11:47 | disposition home or self-care (01) ==
PROVIDERS: PCP Physician Assistant; Visit Provider Physician Assistant
DX: J01.10 Acute frontal sinusitis, unspecified (principal)
CPT/HCPCS: 99213

== ENCOUNTER 2023-08-23 11:38 | Outpatient (REF) | payer OTHER, SELFPAY ==
[2023-08-23 14:47] LABS: Influenza A PCR NEGATIVE (Negative); Influenza B PCR NEGATIVE (Negative); Resp Syncy Virus RNA Qual PCR NEGATIVE (Negative); SARS COV2 PCR INHOUSE NEGATIVE (Negative)
== END 2023-08-23 11:39 | disposition home or self-care (01) ==
LOC: HO.LAB 11:38
PROVIDERS: Visit Provider Physician Assistant
DX: Z11.52 Encounter for screening for COVID-19 (principal); Z20.822 Contact with and (suspected) exposure to COVID-19; B34.9 Viral infection, unspecified
CPT/HCPCS: 0241U

== ENCOUNTER 2023-08-24 20:22 | Emergency (ER) | payer OTHER, SELFPAY ==
--- NOTE | 2023-08-24 20:49 | ED_ITS ---
HPI - Headache General Chief Complaint: General Medical Stated Complaint: headache left eye/strong headache Time Seen by Provider: 08/25/23 02:04 History of Present Illness HPI Narrative: The patient is a 48-year-old male who says that he has had a worsening left- sided headache for the last 2-3 weeks. He says he has also had a lot of nasal discharge. He has a subjective sense that he has had fevers but has not measured any fevers. He was seen at an outpatient clinic yesterday and diagnosed with possible sinusitis and started on Augmentin. He thinks he has taken about 4 doses of the Augmentin. Despite this he feels his symptoms have gotten worse. He says he does not have a history of headaches. He has photophobia. No nausea or vomiting. No neck stiffness. No significant history of headaches. He says the only medication that he usually takes is for his stomach. This medication seems to be a proton pump inhibitor. Related Data Home Medications Medication Instructions Recorded Confirmed acetaminophen 500 mg tablet 1,000 mg PO Q6H PRN pain 12/03/22 07/13/23 esomeprazole magnesium 40 mg 40 mg PO DAILY 08/23/23 capsule,delayed release Previous Rx's Medication Instructions Recorded nicotine 21 mg/24 hr daily 1 patch transdermal DAILY 14 days 05/31/23 transdermal patch #14 ea fluticasone propionate 50 1 spray intranasal DAILY 30 days 06/07/23 mcg/actuation nasal #16 grams spray,suspension (Flonase Allergy Relief) loratadine 10 mg tablet (Allergy 10 mg PO DAILY 30 days #30 tabs 06/07/23 Relief (loratadine)) sucralfate 100 mg/mL oral 10 ml PO BID 30 days #600 mL 06/07/23 suspension amoxicillin 875 mg-potassium 1 tab PO BID 10 days #20 tabs 08/23/23 clavulanate 125 mg tablet prednisone 20 mg tablet 40 mg (2 x 20 mg) PO DAILY 5 days 08/23/23 #10 tabs ibuprofen 600 mg tablet 600 mg PO QID PRN pain #14 tabs 08/25/23 Allergies Allergy/AdvReac Type Severity Reaction Status Date / Time No Known Allergies Allergy Verified 08/24/23 20:50 [No Known Allergies*] Review of Systems 2 Review of Systems: Yes all other systems are reviewed and are negative PMFSH Past Medical History Medical History Cough Chronic GERD Hematemesis Right foot pain Vertigo Family history of hypertension Right sided sciatica Elevated MCV Hypovitaminosis D Surgical History Hx of colonoscopy History of esophagogastroduodenoscopy (EGD) No pertinent past surgical history Family History Family History Father No problems noted. Mother Hypertension CVD (cardiovascular disease) Social History Social History Housing: Apartment Alcohol intake: current Alcohol intake frequency: a few times a month Alcohol type: beer Patient Tobacco Use Status: Current everyday Tobacco user Tobacco use type: Cigarette Cigarette Packs Per Day: 1 Cigarettes Per Day: 20.0 e-Cigarette/Vaping Use: Never Used Second Hand Smoke Exposure: Yes Advance Directives: No Advance Directives Information Provided: No service: No Current occupational status: employed Current occupational exposures/hazards: No Cognitive needs: No Hearing needs: No Vision needs: Yes Physical Exam 2 Vital Signs: Vital Signs: Last Vital Signs Temp 97.7 F 08/25/23 01:22 Pulse 63 08/25/23 01:22 Resp 16 08/25/23 01:22 BP 110/69 08/25/23 01:22 Pulse Ox 97 08/25/23 01:22 O2 Del Method Room Air 08/25/23 01:22 BMI result Body Mass Index 24.5 Const: Other: The patient is a slim, athletic looking 48-year-old who was awake and alert and does not appear obviously acutely ill. He does not seem toxic. HEENT: Other: Patient has some mild tenderness over the left frontal sinus and in the left temporal region. Face is symmetrical. Mucous membranes are moist. Pharynx is unremarkable. Eyes: Other: Pupils are round equal, extraocular movements are intact, no proptosis. No apparent abnormalities of any kind either of the eyes. Neck: Other: The neck is entirely supple. He can touch his chin to his chest to very easily. No adenopathy. Resp: Other: Lungs are clear bilaterally Cardio: Other: The patient has a regular rate and rhythm with no murmur Skin: Other: Skin is dry and unremarkable. Neuro: Other: The patient is awake and alert. He was interviewed with a grinder. His speech is fairly fluent. His neck is entirely supple. He seems entirely nontoxic. Extrem: Other: No peripheral edema Course Course Course Narrative: RME: 48yo M w/PMHx GERD c/o LIZARRAGA and L eye pain feels like eye wants to pop out x1 week. LIZARRAGA worse at night & admits to assoc fever. Was seen at yesterday Dx w/sinusitis Rx Abx and prednisone w/o relief, tested negative for COVID/FLU/RSV yesterday. admits to tingling in hands & blurry/tearing left eye. denies N/V Labs ordered Full HPI, ROS and PE to be performed by primary ED provider. Medications Administered Discontinued Medications Generic Name Dose Route Start Last Admin Trade Name Freq PRN Reason Stop Dose Admin Diphenhydramine HCl 25 mg 08/25/23 02:25 08/25/23 02:53 Diphenhydramine Hcl 50 Mg/Ml Vial IVPUSH 08/25/23 02:26 25 mg ONCE ONE Administration Sodium Chloride 1,000 mls @ 999 mls/hr 08/25/23 02:30 08/25/23 03:59 Ns IV 08/25/23 03:30 Infused .Q1H1M PAMELA Infusion Ketorolac Tromethamine 15 mg 08/25/23 02:25 08/25/23 02:54 Ketorolac Tromethamine 15 Mg/Ml Vial IVPUSH 08/25/23 02:26 15 mg ONCE ONE Administration Metoclopramide HCl 10 mg 08/25/23 02:25 08/25/23 02:55 Metoclopramide Hcl 10 Mg/2 Ml Vial IVPUSH 08/25/23 02:26 10 mg ONCE ONE Administration Medical Decision Making Medical Decision Making [facility] Narrative: Patient presents with a complaint of a left-sided headache. He was started on Augmentin 2 days ago and has had no improvement. Patient's pain seems to center around the left eye. Patient does not seem acutely ill clinically or toxic in anyway. His presentation and his description of his symptoms seem possibly suggestive of a migraine syndrome. The patient's white count was mildly elevated but his C-reactive protein is normal at 0.10. Given this normal C- reactive protein I do not really think there is any indication for imaging of his sinuses. He was treated with ketorolac and metoclopramide and seemed to feel much better. I think it be reasonable to discharge him to follow up with his regular doctor. They may continue the course of Augmentin. He should return if worse. Lab Data 08/24/23 21:07 08/24/23 21:07 Labs: Lab Results 08/24/23 08/25/23 08/25/23 Range/Units 21:07 02:11 02:17 WBC 11.4 H (4.8-10.8) X10*3/uL RBC 4.14 L (4.60-5.80) X10*6/uL Hgb 14.1 (14.0-18.0) g/dl Hct 40.9 L (42.0-52.0) % MCV 98.8 H (80.0-98.0) fL MCH 34.1 H (27.0-33.0) pg MCHC 34.5 (31.0-36.0) g/dl RDW 12.5 (11.0-16.0) % Plt Count 294 (160-400) X10*3/uL MPV 10.3 (9.4-12.4) fL Immature Gran % (Auto) 0.4 (0.0-0.4) % Neut % (Auto) 87.8 H (45-73) % Lymph % (Auto) 9.5 L (20-40) % [place] % (Auto) 2.2 (2-11) % Eos % (Auto) 0.0 (0-4) % Baso % (Auto) 0.1 (0-2) % Lymph # (Auto) 1.1 L (1.2-4.9) X10*3/uL [place] # (Auto) 0.3 (0.1-1.2) X10*3/uL Eos # (Auto) 0.0 (0.0-0.4) X10*3/uL Baso # (Auto) 0.0 (0.0-0.2) X10*3/uL Abs Immat Gran (auto) 0.05 H (0.00-0.03) X10*3/uL Absolute Neuts (auto) 10.0 H (2.0-8.3) x10*3/uL Absolute Nucleated RBC 0.000 (0.0-0.012) X10*3/uL Nucleated RBC % (auto) 0.0 (0.0-0.2) /100WBC ESR Cancelled Sodium 138 (135-145) mmol/L Potassium 4.7 (3.3-5.1) mmol/L Chloride 107 (96-108) mmol/L Carbon Dioxide 24 (22-29) mmol/L Anion Gap 12 (12-20) BUN 17 H (9-16) mg/dL Creatinine 0.99 (0.5-1.4) mg/dL Estim Creat Clear Calc 82.3 Estimated GFR > 60 Random Glucose 136 H (60-115) mg/dL Calcium 9.6 (8.4-10.2) mg/dL Magnesium 2.2 (1.6-2.6) mg/dL Total Bilirubin 0.2 (0.0-1.0) mg/dL Direct Bilirubin < 0.2 (0.0-0.5) mg/dL AST 16 (5-37) U/L ALT 9 (0-40) U/L Alkaline Phosphatase 74 (39-117) U/L C-Reactive Protein 0.10 (< or = 0.50) mg/dL Total Protein 7.9 (6.5-8.0) g/dL Albumin 4.5 (3.5-5.0) g/dL Influenza Type A (PCR) NEGATIVE (Negative) Influenza Type B (PCR) NEGATIVE (Negative) RSV RNA Qual (PCR) NEGATIVE (Negative) SARS-CoV-2 RNA (RT-PCR) NEGATIVE (Negative) Discharge Plan Discharge Clinical Impression: Left-sided headache Patient Disposition: Home, Self-Care Additional Instructions: Please rest and take it easy today. Please continue the antibiotic you were prescribed. And a prescription for ibuprofen to your pharmacy which you may use as needed for pain. You may also take Tylenol. Please follow-up with your regular doctor soon. Return to the emergency room a significantly worse. Prescriptions: New ibuprofen 600 mg tablet 600 mg PO QID PRN (Reason: pain) Qty: 14 0RF No Action acetaminophen 500 mg tablet 1,000 mg PO Q6H PRN (Reason: pain) sucralfate 100 mg/mL suspension 10 ml PO BID 30 Days Qty: 600 1RF loratadine [Allergy Relief (loratadine)] 10 mg tablet 10 mg PO DAILY 30 Days Qty: 30 1RF fluticasone propionate [Flonase Allergy Relief] 50 mcg/actuation spray,suspension 1 spray intranasal DAILY 30 Days Qty: 16 0RF Rx Instructions: administer into each nostril nicotine 21 mg/24 hr patch 24 hour 1 patch transdermal DAILY 14 Days Qty: 14 0RF esomeprazole magnesium 40 mg capsule,delayed release(DR/EC) 40 mg PO DAILY amoxicillin-pot clavulanate 875-125 mg tablet 1 tab PO BID 10 Days Qty: 20 0RF prednisone 20 mg tablet 40 mg PO DAILY 5 Days Qty: 10 0RF Referrals: Maria Sher MD [Primary Care Provider] - (headache) Stand Alone Forms: Work/School Release Interventions: ED Discharge Assessment Last Done: 08/25/23 05:58 Discharge Date/Time: 08/25/23 06:01
[2023-08-24 20:51] VITALS: BP 121/76; PULSE 68; RESP 18; TEMP 36.4; O2SAT 99; BMI 24.5
[2023-08-24 21:11] LABS: MANUAL DIFF FLAG NO
[2023-08-24 21:21] LABS: Basophils Percent Auto 0.1 % (0-2); Hematocrit 40.9 % (42.0-52.0); Hemoglobin 14.1 g/dl (14.0-18.0); Imm Gran Abs Auto 0.05 X10*3/uL (0.00-0.03); Imm Gran Pct Auto 0.4 % (0.0-0.4); Lymphocytes Absolute Auto 1.1 X10*3/uL (1.2-4.9); Lymphocytes Percent Auto 9.5 % (20-40); Mean Corpuscular HGB Conc 34.5 g/dl (31.0-36.0); Mean Corpuscular Hemoglobin 34.1 pg (27.0-33.0); Mean Corpuscular Volume 98.8 fL (80.0-98.0); Mean Platelet Volume 10.3 fL (9.4-12.4); Monocytes Absolute Auto 0.3 X10*3/uL (0.1-1.2); Monocytes Percent Auto 2.2 % (2-11); Neutrophils Percent Auto 87.8 % (45-73); Platelet Count 294 X10*3/uL (160-400); Red Blood Count 4.14 X10*6/uL (4.60-5.80); Red Cell Distribution Width 12.5 % (11.0-16.0); White Blood Count 11.4 X10*3/uL (4.8-10.8)
[2023-08-24 21:27] LABS: Alanine Aminotransferase 9 U/L (0-40); Albumin Level 4.5 g/dL (3.5-5.0); Alkaline Phosphatase 74 U/L (39-117); Anion Gap 12 (12-20); Aspartate Amino Transferase 16 U/L (5-37); Bilirubin Direct < 0.2 mg/dL (0.0-0.5); Bilirubin Total 0.2 mg/dL (0.0-1.0); Blood Urea Nitrogen 17 mg/dL (9-16); Calcium 9.6 mg/dL (8.4-10.2); Carbon Dioxide 24 mmol/L (22-29); Chloride 107 mmol/L (96-108); Creatinine Clr Calc Pharmacy 82.3; Estimated Glomerular Filt Rate > 60; Glucose Random 136 mg/dL (60-115); Magnesium 2.2 mg/dL (1.6-2.6); Potassium 4.7 mmol/L (3.3-5.1); Sodium 138 mmol/L (135-145); Total Protein 7.9 g/dL (6.5-8.0)
[2023-08-25 01:22] VITALS: BP 110/69; PULSE 63; RESP 16; TEMP 36.5; O2SAT 97
[2023-08-25] MEDS: diphenhydrAMINE HCL 50 MG/ML VIAL 25 MG IVPUSH (02:53)
[2023-08-25] MEDS: Ketorolac Tromethamine 15 MG/ML VIAL IVPUSH (02:54)
[2023-08-25] MEDS: Metoclopramide HCl 10 MG/2 ML VIAL IVPUSH (02:55)
[2023-08-25 02:57] LABS: Influenza A PCR NEGATIVE (Negative); Influenza B PCR NEGATIVE (Negative); Resp Syncy Virus RNA Qual PCR NEGATIVE (Negative); SARS COV2 PCR INHOUSE NEGATIVE (Negative)
[2023-08-25] MEDS: 0.9 % Sodium Chloride 1,000 ML 999 ML IV (02:58)
== END 2023-08-25 06:01 | disposition home or self-care (01) ==
PROVIDERS: Emergency Medicine; Physician Assistant; Emergency Provider Emergency Medicine; PCP Internal Medicine
DX: R51.9 Headache, unspecified (principal); R50.9 Fever, unspecified; H53.143 Visual discomfort, bilateral; F17.210 Nicotine dependence, cigarettes, uncomplicated; Z20.822 Contact with and (suspected) exposure to COVID-19; Z20.828 Contact with and (suspected) exposure to other viral communicable diseases; Z79.899 Other long term (current) drug therapy; Z71.6 Tobacco abuse counseling
CPT/HCPCS: 0241U; 36415; 80048; 80076; 83735; 85025; 86140; 96361; 96374; 96375; 99284; J1200; J1885; J2765

== ENCOUNTER 2023-09-16 13:43 | Outpatient (AMB) | payer OTHER, SELFPAY ==
--- NOTE | 2023-09-16 13:56 | MHC.PC.OV ---
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 Operator Name: [place] (spouse) Information Interpreted: non-clinical & clinical Print Project Manager: Present Accompanied by: Spouse Allergies No Known Allergies [No Known Allergies*] Allergy (Verified 09/19/23 09:19) Medication List - Last Reconciled 09/19/23 by Sam Caban MD acetaminophen 1,000 mg PO Q6H PRN esomeprazole magnesium 40 mg PO DAILY 90 days fluticasone propionate 50 mcg/actuation (Flonase Allergy Relief) 1 spray intranasal DAILY 30 days hydrocortisone 2.5% 1 appl topical BID PRN ibuprofen 600 mg PO QID PRN loratadine (Allergy Relief (loratadine)) 10 mg PO DAILY 30 days nicotine 1 patch transdermal DAILY 14 days sucralfate 10 mL PO BID 30 days Tobacco use date assessed: 09/16/23 Dental Screening Dental Screen Date: 09/16/23 Did you have a dental visit in the last 12 months?: Yes Did you have a dental problem in the last 6 months where you did not have access to dental care?: No Was dental information given to patient?: Patient has dentist HPI ED F/U for difficulty breathing, sinusitis HPI Details 48-year-old male presents to the office for a follow-up visit. I am covering for his primary care provider. He is accompanied by his who is translating for him. Patient is had 2 visits to the emergency room for headache and sinus issues. He has been treated with antibiotics on both occasions. According to the he continues to have pain in the sinus area. Also having symptoms of congestion. No fever or chills. Patient is also having a rash on the right heel that he would like evaluated. [facility] Medical History Cough Chronic GERD Hematemesis Right foot pain Vertigo Family history of hypertension Right sided sciatica Elevated MCV Hypovitaminosis D Surgical History Hx of colonoscopy History of esophagogastroduodenoscopy (EGD) No pertinent past surgical history Family History Father No problems noted. Mother Hypertension CVD (cardiovascular disease) Social History (Updated 09/16/23 @ 14:11 by PANKAJ Arias) Housing: Apartment Alcohol intake: current Alcohol intake frequency: a few times a month Alcohol type: beer Patient Tobacco Use Status: Current everyday Tobacco user Tobacco use type: Cigarette Cigarette Packs Per Day: 0.5 Cigarettes Per Day: 10.0 e-Cigarette/Vaping Use: Never Used Second Hand Smoke Exposure: Yes service: No Current occupational status: employed Current occupational exposures/hazards: No Cognitive needs: No Hearing needs: No Vision needs: Yes Questionnaire PHQ-9 Over the last 2 weeks, how often have you been bothered by any of the following problems? 1. Little interest or pleasure in doing things: several days 2. Feeling down, depressed, or hopeless: nearly every day 3. Trouble falling or staying asleep, or sleeping too much: nearly every day 4. Feeling tired or having little energy: nearly every day 5. Poor appetite or overeating: nearly every day 6. Feeling bad about yourself - or that you are a failure or have let yourself or your family down: nearly every day 7. Trouble concentrating on things, such as reading the newspaper or watching television: nearly every day 8. Moving or speaking so slowly that other people could have noticed. Or the opposite - being so fidgety or restless that you have been moving around a lot more than usual: nearly every day 9. Thoughts that you would be better off or of hurting yourself in some way: not at all Total score: 22 Source: Developed by Drs. Ish Velazco, Leda Lara, Nate Schaefer and colleagues, with an educational neema from [employer]. Thrive Questionnaire Date Thrive assessed: 09/16/23 I am a: Patient What is your living situation today?: I have a steady place to live Within the past 12 months, did the food you bought not last and you didn't have the money to get more?: Never true Within the past 12 months, did you worry whether your food would run out before you got money to buy more?: Never true Do you have trouble paying for medicines?: No Do you have trouble getting transportation to medical appointments?: No Do you have trouble paying your heating and electricity bill?: No Do you have trouble taking care of your child, family member or friend?: No Do you have trouble with day-to-day activities such as bathing, preparing meals, shopping, managing finances, etc.?: No Are you currently unemployed and looking for a job?: No Are you interested in more education?: No Currently or been in a relationship where the following occur: no concerns reported AUDIT C Alcohol Use Questionnaire (AUDIT-C) 1. How often do you have a drink containing alcohol?: 2-3 times a week 2. How many drinks containing alcohol do you have on a typical day when you are drinking?: 3 or 4 3. How often do you have six or more drinks on one occasion?: Never Total Score: 4 DECLAN-7 AMB Questionnaire DECLAN-7 Date DECLAN - 7 assessed: 09/16/23 Feeling nervous, anxious, or on edge: 3 = Nearly every day Not being able to stop or control worryin = More than half the days Worrying too much about different things: 2 = More than half the days Trouble relaxin = More than half the days Being so restless that it is hard to sit still: 1 = Several days Becoming easily annoyed or irritable: 1 = Several days Feeling afraid as if something awful might happen: 0 = Not at all Total DECLAN-7 score (0-4 normal; 5-9 mild; 10-14 moderate; 15-21 severe): 11 Source: Developed by Drs. Ish Velazco, Leda Lara, Nate Schaefer and colleagues, with an educational neema from [employer]. Physical exam (Primary Care) Vital Signs: Last Vital Signs Pulse 61 09/16/23 14:00 BP 118/64 09/16/23 14:00 Pulse Ox 98 09/16/23 14:00 Oxygen Delivery Method Room Air 09/16/23 14:00 BMI result Body Mass Index 23.6 Tobacco/Smoking Status: Tobacco use Status Tobacco use date assessed 09/16/23 09/16/23 14:15 Patient Tobacco Use Status Current everyday Tobacco 09/16/23 14:15 Tobacco use type Cigarette 09/16/23 14:15 e-Cigarette/Vaping Use Never Used 09/16/23 14:15 PHQ-9: PHQ-9 Score PHQ-9: Total score 22 09/16/23 14:15 Thrive Assessment: Date of Thrive Assessment Date Thrive assessed 09/16/23 09/16/23 14:15 Currently or been in a relationship where the following occur: no concerns reported Const General: cooperative and healthy appearing Nutritional Appearance: well nourished Orientation/consciousness: patient oriented x3 Limitations: no limitations HENMT Head: Yes normal to inspection Eyes General: appearance normal, both eyes and all related structures Neck Neck: Yes normal visual inspection Chest Chest palpation & inspection: normal palpation of entire chest wall Resp Effort & Inspection: normal respiratory effort Skin Other: Right foot: Plantar surface: Thickened erythematous rash near the calcaneal area. Neuro General: patient oriented x3 Assessment and Plan Assessment & Plan (1) Sinusitis: Code(s): J32.9 - Chronic sinusitis, unspecified Qualifiers: Sinusitis location: frontal Chronicity: acute Recurrence: non-recurrent Qualified Code(s): J01.10 - Acute frontal sinusitis, unspecified Plan: ER and walk-in reports reviewed. Patient was advised to use Flonase. If symptoms do not improve a CT scan of the face will be done. Patient's blood work shows macrocytosis. He has been consuming large quantities of alcohol and I counseled him to decrease the amount. Patient is not very motivated to quit alcohol. Risks of continues drinking explained to the patient. 15 minutes spent on counseling. (2) Eczema: Code(s): L30.9 - Dermatitis, unspecified Plan: Steroid cream prescribed. Medications: New hydrocortisone 2.5% 1 appl topical BID PRN 20 grams 0RF skin irritation Refilled sucralfate 10 mL PO BID 30 days 600 mL 1RF Coding Level of Care Code Est Pt Level 4 (63356) Diagnoses Acute non-recurrent frontal sinusitis J01.10 Sinusitis location: frontal Chronicity: acute Recurrence: non-recurrent Eczema L30.9
[2023-09-16 14:00] VITALS: BP 118/64; PULSE 61; O2SAT 98; BMI 23.6
== END 2023-09-16 14:34 | disposition home or self-care (01) ==
PROVIDERS: PCP Internal Medicine; Visit Provider Internal Medicine
DX: J01.10 Acute frontal sinusitis, unspecified (principal); L30.9 Dermatitis, unspecified
CPT/HCPCS: 99214

== ENCOUNTER 2023-10-21 14:15 | Outpatient (AMB) | payer OTHER, SELFPAY ==
--- NOTE | 2023-10-21 14:19 | MHC.PC.OV ---
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 Accompanied by: Spouse Allergies No Known Allergies [No Known Allergies*] Allergy (Verified 10/21/23 14:37) Medication List - Last Reconciled 10/21/23 by Maria Daugherty MD acetaminophen 1,000 mg PO Q6H PRN esomeprazole magnesium 40 mg PO DAILY 90 days fluticasone propionate 50 mcg/actuation (Flonase Allergy Relief) 1 spray intranasal DAILY 30 days hydrocortisone 2.5% 1 appl topical BID PRN ibuprofen 600 mg PO QID PRN loratadine (Allergy Relief (loratadine)) 10 mg PO DAILY 30 days nicotine 1 patch transdermal DAILY 14 days sucralfate 10 mL PO BID 30 days Tobacco use date assessed: 09/16/23 Dental Screening Dental Screen Date: 10/21/23 Did you have a dental visit in the last 12 months?: Yes Did you have a dental problem in the last 6 months where you did not have access to dental care?: No Was dental information given to patient?: Patient has dentist HPI HPI Comments History of Present Illness Details This is a 48-year-old male with chronic GERD, major depression and ophthalmoplegic migraines that complains of nasal congestion and frontal her leg that has been bothering him for few weeks. Went to ER and was given antibiotics with no significant response. X-ray of the sinus will be order and I will give another antibiotic. No fever. Will be referred to ENT. GERD has been stable with medications. Has mild major depression and declines treatment. Has migraines involving the I and will be referred to Neurology. No chest pain or shortness of breath. [facility] Medical History (Updated 10/21/23 @ 17:10 by Maria Daugherty MD) Cough Chronic GERD Hematemesis Right foot pain Vertigo Family history of hypertension Right sided sciatica Elevated MCV Hypovitaminosis D Surgical History Hx of colonoscopy History of esophagogastroduodenoscopy (EGD) No pertinent past surgical history Family History Father No problems noted. Mother Hypertension CVD (cardiovascular disease) Social History Housing: Apartment Alcohol intake: current Alcohol intake frequency: a few times a month Alcohol type: beer Patient Tobacco Use Status: Current everyday Tobacco user Tobacco use type: Cigarette Cigarette Packs Per Day: 0.5 Cigarettes Per Day: 10.0 e-Cigarette/Vaping Use: Never Used Second Hand Smoke Exposure: Yes service: No Current occupational status: employed Current occupational exposures/hazards: No Cognitive needs: No Hearing needs: No Vision needs: Yes Questionnaire PHQ-9 Over the last 2 weeks, how often have you been bothered by any of the following problems? 1. Little interest or pleasure in doing things: nearly every day 2. Feeling down, depressed, or hopeless: nearly every day 3. Trouble falling or staying asleep, or sleeping too much: nearly every day 4. Feeling tired or having little energy: nearly every day 5. Poor appetite or overeating: nearly every day 6. Feeling bad about yourself - or that you are a failure or have let yourself or your family down: nearly every day 7. Trouble concentrating on things, such as reading the newspaper or watching television: nearly every day 8. Moving or speaking so slowly that other people could have noticed. Or the opposite - being so fidgety or restless that you have been moving around a lot more than usual: nearly every day 9. Thoughts that you would be better off or of hurting yourself in some way: not at all Total score: 24 Depression Screening Interpretation: Positive (no suicidal thoughts) Depression Screening Follow-up: Existing condition Depression Screening Done: Yes 25206 - PHQ-9 Billing: Yes Source: Developed by Drs. Ish Velazco, Leda Lara, Nate Schaefer and colleagues, with an educational neema from [employer]. Thrive Questionnaire Date Thrive assessed: 10/21/23 I am a: Patient What is your living situation today?: I have a steady place to live Within the past 12 months, did the food you bought not last and you didn't have the money to get more?: Never true Within the past 12 months, did you worry whether your food would run out before you got money to buy more?: Never true Do you have trouble paying for medicines?: No Do you have trouble getting transportation to medical appointments?: No Do you have trouble paying your heating and electricity bill?: No Do you have trouble taking care of your child, family member or friend?: No Do you have trouble with day-to-day activities such as bathing, preparing meals, shopping, managing finances, etc.?: No Are you currently unemployed and looking for a job?: No Are you interested in more education?: No Please select the resources that you would like help with: None Currently or been in a relationship where the following occur: no concerns reported THRIVE Score: 0 AUDIT C Alcohol Use Questionnaire (AUDIT-C) 1. How often do you have a drink containing alcohol?: Monthly or less 2. How many drinks containing alcohol do you have on a typical day when you are drinking?: 1 or 2 3. How often do you have six or more drinks on one occasion?: Never Total Score: 1 Score Reviewed/Action Taken: No DECLAN-7 AMB Questionnaire DECLAN-7 Date DECLAN - 7 assessed: 09/16/23 Feeling nervous, anxious, or on edge: 3 = Nearly every day Not being able to stop or control worryin = Nearly every day Worrying too much about different things: 3 = Nearly every day Trouble relaxin = Nearly every day Being so restless that it is hard to sit still: 3 = Nearly every day Becoming easily annoyed or irritable: 3 = Nearly every day Feeling afraid as if something awful might happen: 1 = Several days Total DECLAN-7 score (0-4 normal; 5-9 mild; 10-14 moderate; 15-21 severe): 19 Source: Developed by Drs. Ish Velazco, Leda Lara, Nate Schaefer and colleagues, with an educational neema from [employer]. DECLAN-7 Assessment Billing DECLAN-7 Assessment Tool: DECLAN-7 Assessment 51100 Review of Systems Const All systems reviewed & are unremarkable except as noted in HPI and below Eyes Reports no additional complaints, Denies change in vision and Denies other visual disturbances Card Denies chest pain at rest, Denies chest pain with activity, Denies edema, Denies irregular heart rhythm, Denies claudication, Denies dyspnea, Denies dyspnea on exertion, Denies orthopnea, Denies paroxysmal nocturnal dyspnea and Denies slow heart rate Resp Denies cough, Denies dyspnea and Denies dyspnea on exertion GI Denies abdominal pain, Denies change in bowel habits, Denies excessive flatus, Denies nausea and Denies vomiting Denies urinary hesitancy, Denies urinary incontinence and Denies urinary urgency Musc Denies abnormal gait, Denies atrophy, Denies deformity and Denies limited range of motion Skin/Breast Denies bleeding lesions, Denies changing lesions and Denies rash Neuro Denies abnormal gait, Denies behavioral changes and Denies lack of coordination Psych Denies behavioral changes Physical exam (Primary Care) Vital Signs: Last Vital Signs BP 110/72 10/21/23 14:21 BMI result Body Mass Index 23.2 Tobacco/Smoking Status: Tobacco use Status Tobacco use date assessed 09/16/23 10/21/23 14:29 Patient Tobacco Use Status Current everyday Tobacco 10/21/23 14:29 Tobacco use type Cigarette 10/21/23 14:29 e-Cigarette/Vaping Use Never Used 10/21/23 14:29 PHQ-9: PHQ-9 Score PHQ-9: Total score 24 10/21/23 14:50 Depression Screening Interpretation: Positive (no suicidal thoughts) Depression Screening Follow-up: Existing condition Thrive Assessment: Date of Thrive Assessment Date Thrive assessed 10/21/23 10/21/23 14:29 Currently or been in a relationship where the following occur: no concerns reported Eyes General: appearance normal, both eyes and all related structures Eyelids: Yes eyelids normal Conjunctivae: conjunctivae normal Neck Neck: Yes normal visual inspection and Yes supple Resp Effort & Inspection: normal respiratory effort Auscultation: clear to auscultation bilaterally Cardio Jugular venous distension: no JVD Rate: regular rate Rhythm: regular rhythm Heart sounds: S1 normal heart sound present and S2 normal heart sound present Extrem General: Yes full ROM Assessment and Plan Assessment & Plan (1) Ophthalmoplegic migraine: Code(s): G43.B0 - Ophthalmoplegic migraine, not intractable Plan: Referred to neurology. (2) Chronic GERD: Code(s): K21.9 - Gastro-esophageal reflux disease without esophagitis Plan: Continue PPIs. (3) Sinusitis: Code(s): J32.9 - Chronic sinusitis, unspecified Qualifiers: Sinusitis location: frontal Chronicity: acute Recurrence: non-recurrent Qualified Code(s): J01.10 - Acute frontal sinusitis, unspecified Plan: X-ray ordered. Start antibiotics. Referred to ENT. (4) Mild major depression: Code(s): F32.0 - Major depressive disorder, single episode, mild Plan: Declined treatment. Orders: Orders Complete Blood Count Auto Diff Today R63.4 - Abnormal weight loss Comprehensive Met. Panel Today R63.4 - Abnormal weight loss Thyroid Stimulating Hormone Today R63.4 - Abnormal weight loss Referrals Ear/Nose/Throat Referral J01.10 - Acute frontal sinusitis, unspecified Neurology Referral G43.B0 - Ophthalmoplegic migraine, not intractable Medications: New sulfamethoxazole-trimethoprim 800-160 mg (Bactrim DS) 1 tab PO BID 3 days 6 tabs 0RF J01.10 - Acute frontal sinusitis, unspecified Refilled hydrocortisone 2.5% 1 appl topical BID PRN 20 grams 0RF skin irritation nicotine 1 patch transdermal DAILY 14 days 14 ea 0RF F17.200 - Nicotine dependence, unspecified, uncomplicated loratadine (Allergy Relief (loratadine)) 10 mg PO DAILY 30 days 30 tabs 1RF Coding Level of Care Code Est Pt Level 4 (58434) Diagnoses Ophthalmoplegic migraine G43.B0 Chronic GERD K21.9 Acute non-recurrent frontal sinusitis J01.10 Sinusitis location: frontal Chronicity: acute Recurrence: non-recurrent Mild major depression F32.0 Additional Codes DECLAN-7 Assessment Billing - DECLAN-7 Assessment Tool: DECLAN-7 Assessment 89374 ([id number]) Time Spent (min) 23
[2023-10-21 14:21] VITALS: BP 110/72; BMI 23.2
== END 2023-10-21 14:47 | disposition home or self-care (01) ==
PROVIDERS: PCP Internal Medicine; Visit Provider Internal Medicine
DX: G43.B0 Ophthalmoplegic migraine, not intractable (principal); K21.9 Gastro-esophageal reflux disease without esophagitis; J01.10 Acute frontal sinusitis, unspecified; F32.0 Major depressive disorder, single episode, mild
CPT/HCPCS: 99214

== ENCOUNTER 2023-10-21 15:00 | Outpatient (REF) | payer OTHER, SELFPAY ==
--- NOTE | ~2023-10-21 | XR_ITS ---
EXAMINATION: XR SINUSES CLINICAL INFORMATION: Chronic sinusitis COMPARISON: None available. TECHNIQUE: 3 views of the sinuses were obtained. FINDINGS: Visualized paranasal sinuses appear clear. No air-fluid levels. XR/XR sinus min 3V IMPRESSION: Visualized paranasal sinuses appear clear. If clinical concern for sinusitis persists, CT sinuses be more sensitive for evaluation.
[2023-10-21 15:13] LABS: MANUAL DIFF FLAG NO
[2023-10-21 15:25] LABS: Basophils Absolute Auto 0.1 X10*3/uL (0.0-0.2); Basophils Percent Auto 0.8 % (0-2); Eosinophils Absolute Auto 0.3 X10*3/uL (0.0-0.4); Eosinophils Percent Auto 5.6 % (0-4); Hematocrit 40.8 % (42.0-52.0); Hemoglobin 13.9 g/dl (14.0-18.0); Imm Gran Abs Auto 0.02 X10*3/uL (0.00-0.03); Imm Gran Pct Auto 0.3 % (0.0-0.4); Lymphocytes Absolute Auto 2.5 X10*3/uL (1.2-4.9); Lymphocytes Percent Auto 41.2 % (20-40); Mean Corpuscular HGB Conc 34.1 g/dl (31.0-36.0); Mean Corpuscular Hemoglobin 33.2 pg (27.0-33.0); Mean Corpuscular Volume 97.4 fL (80.0-98.0); Mean Platelet Volume 9.9 fL (9.4-12.4); Monocytes Absolute Auto 0.6 X10*3/uL (0.1-1.2); Monocytes Percent Auto 10.1 % (2-11); Neutrophils Absolute Auto 2.5 x10*3/uL (2.0-8.3); Platelet Count 281 X10*3/uL (160-400); Red Blood Count 4.19 X10*6/uL (4.60-5.80); Red Cell Distribution Width 13.2 % (11.0-16.0); White Blood Count 6.1 X10*3/uL (4.8-10.8)
[2023-10-21 16:11] LABS: Alanine Aminotransferase 15 U/L (0-40); Albumin Level 4.3 g/dL (3.5-5.0); Alkaline Phosphatase 69 U/L (39-117); Anion Gap 11 (12-20); Aspartate Amino Transferase 16 U/L (5-37); Bilirubin Total 0.5 mg/dL (0.0-1.0); Blood Urea Nitrogen 14 mg/dL (9-16); Calcium 9.5 mg/dL (8.4-10.2); Carbon Dioxide 32 mmol/L (22-29); Chloride 102 mmol/L (96-108); Estimated Glomerular Filt Rate > 60; Glucose Random 94 mg/dL (60-115); Potassium 4.5 mmol/L (3.3-5.1); Sodium 140 mmol/L (135-145); Total Protein 7.1 g/dL (6.5-8.0)
[2023-10-21 16:26] LABS: Thyroid Stimulating Hormone 0.55 uIU/mL (0.32-4.0)
== END 2023-10-21 15:01 | disposition home or self-care (01) ==
LOC: HO.XRAY 15:00
PROVIDERS: PCP Internal Medicine; Visit Provider Internal Medicine
DX: R63.4 Abnormal weight loss (principal); J32.9 Chronic sinusitis, unspecified
CPT/HCPCS: 36415; 70220; 80053; 84443; 85025

== ENCOUNTER 2023-10-22 12:05 | Outpatient (AMB) | payer OTHER, SELFPAY ==
--- NOTE | 2023-10-22 12:17 | A.OFFVIS_ITS ---
Intake Vital Signs 10/22/23 12:20 Height 5 ft 6 in Weight 142 lb BMI 22.9 BP 107/59 L Blood Pressure Location Lt brachial Position Sitting Pulse 65 Intake Visit Reasons: Gastroesophageal reflux disease (GERD) Intake Note: Patient follow up for GERD. Patient cc: nauseas, abdominal pain, acid reflex with burning sensation and some diarrhea, also patient said he needed another medication for acid reflex. Manager Utility Required: No Accompanied by: Spouse Allergies No Known Allergies [No Known Allergies*] Allergy (Verified 10/22/23 12:17) HPI Gastroesophageal reflux disease (GERD) HPI Details 48 yr old m with low vit D being seen fo r f/u RECAP: he has epigastric pain, many yeARS worse with food denies nausea or vomiting no weight loss appetite is poor he has heartburn he has constipation, he has hard stool and has to push stool hard- other times feels like diarrhea no blood in stool he is from [facility] uses cocaine, smoker, H pylori negative: 09/2021 Hep B --prior exposure Hep C and HIV negative mild anemia on labs EGD/colo 02/2022 Endoscopy Findings: erosive gastritis Colonoscopy Findings: colonic inertia diverticulosis internal hemorrhoids polyp Path: A. Duodenum, biopsy: Duodenal mucosa with mildly increased intraepithelial lymphocytes and preserved villous architecture. B. Stomach, biopsy: Antral-type and oxyntic mucosa with mild chronic inactive inflammation and intestinal metaplasia; negative for dysplasia; no Helicobacter organisms seen. C. GE junction, biopsy: - Cardiofundic-type mucosa with mild chronic inactive inflammation; no intestinal metaplasia seen. - Squamous mucosa within normal limits. D. Esophagus, random, biopsy: Squamous epithelium within normal limits; no inflammation seen. E. Terminal ileum, biopsy: Terminal ileal mucosa within normal limits. F. Colon, random, biopsy: Colonic mucosa within normal limits. G. Rectum, polypectomy: Hyperplastic mucosal polyp. INTERIM: he has been having sinus and mucous issues he feels the mucous is going down and irritating his throat he is having abdominal pain and reflux he last used cocaine 4 weeks ago pain can be worse with food omeprazole is not helping drinking 2-3 beers a week he goes between diarrhea and constipation no blood in stool he is losing weight, 10# over 2 months EXAM: GENERAL: The patient is thin VITAL SIGNS:see workflow HEENT: Nonicteric sclerae, PERRLA, EOMI. Oropharynx clear. Moist mucous membranes. Conjunctivae appear well perfused. No thyroid mass. CHEST: Chest wall is nontender. HEART: Regular rate and rhythm without murmurs. LUNGS: Clear to auscultation bilaterally. ABDOMEN: Soft, positive bowel sounds, tender suprapubic area, no organomegaly.no flank tenderness SKIN: No rash, no excessive bruising, petechiae, or purpura. NEUROLOGIC: Cranial nerves II-XII intact without motor/sensory deficit. All other systems reviewed and are negative. A/P: 1/ epigastric pain, prob 2/2 combination of cocaine use, smoking, 2/ post nasal drip PLAN: 1/ changed to pantoprazole, refill on zapata cralfate, as helps 2/ advised on improtance of lifestyle mo dification, stopping cocaine use, smoking, risks of CO, stroke etc 3/ refilled flonase and loratadine, 4/ EGD for assessment 5/ check hep c serology [facility] Medical History Cough Chronic GERD Hematemesis Right foot pain Vertigo Family history of hypertension Right sided sciatica Elevated MCV Hypovitaminosis D Surgical History Hx of colonoscopy History of esophagogastroduodenoscopy (EGD) No pertinent past surgical history Family History Father No problems noted. Mother Hypertension CVD (cardiovascular disease) Social History Housing: Apartment Alcohol intake: current Alcohol intake frequency: a few times a month Alcohol type: beer Patient Tobacco Use Status: Current everyday Tobacco user Tobacco use type: Cigarette Cigarette Packs Per Day: 0.5 Cigarettes Per Day: 10.0 e-Cigarette/Vaping Use: Never Used Second Hand Smoke Exposure: Yes service: No Current occupational status: employed Current occupational exposures/hazards: No Cognitive needs: No Hearing needs: No Vision needs: Yes Physical Exam Vital Signs: Last Vital Signs Pulse 65 10/22/23 12:20 BP 107/59 L 10/22/23 12:20 BMI result Body Mass Index 22.9 Assessment & Plan Assessment & Plan (1) Chronic GERD: Code(s): K21.9 - Gastro-esophageal reflux disease without esophagitis Plan: PLAN: 1/ changed to pantoprazole, refill on sucralfate, as helps 2/ advised on improtance of lifestyle modification, stopping cocaine use, smoking, risks of CO, stroke etc 3/ refilled flonase and loratadine, 4/ EGD for assessment (2) Post-nasal drip: Code(s): R09.82 - Postnasal drip Plan: PLAN: 1/ changed to pantoprazole, refill on sucralfate, as helps 2/ advised on improtance of lifestyle modification, stopping cocaine use, smoking, risks of CO, stroke etc 3/ refilled flonase and loratadine, 4/ EGD for assessment (3) Epigastric abdominal pain: Code(s): R10.13 - Epigastric pain Plan: PLAN: 1/ changed to pantoprazole, refill on sucralfate, as helps 2/ advised on improtance of lifestyle modification, stopping cocaine use, smoking, risks of CO, stroke etc 3/ refilled flonase and loratadine, 4/ EGD for assessment Orders: Orders Hepatitis A,B,C Profile Today K21.9 - Gastro-esophageal reflux disease without esophagitis, R09.82 - Postnasal drip, R10.13 - Epigastric pain Medications: New pantoprazole 40 mg PO DAILY 90 tabs 1RF Refilled loratadine (Allergy Relief (loratadine)) 10 mg PO DAILY 30 days 30 tabs 1RF fluticasone propionate 50 mcg/actuation (Flonase Allergy Relief) administer into each nostril 1 spray intranasal DAILY 30 days 16 grams 0RF sucralfate 10 mL PO BID 30 days 600 mL 1RF Discontinued esomeprazole magnesium Discontinued Reason: Doctor's Order 40 mg PO DAILY 90 days 90 caps 0RF Coding Level of Care Code Est Pt Level 4 (94841) Diagnoses Chronic GERD K21.9 Post-nasal drip R09.82 Epigastric abdominal pain R10.13
[2023-10-22 12:20] VITALS: BP 107/59; PULSE 65; BMI 22.9
== END 2023-10-22 12:46 | disposition home or self-care (01) ==
PROVIDERS: PCP Internal Medicine; Visit Provider Internal Medicine Gastroenterology
DX: K21.9 Gastro-esophageal reflux disease without esophagitis (principal); R09.82 Postnasal drip; R10.13 Epigastric pain
CPT/HCPCS: 99214

== ENCOUNTER → 2023-10-22 12:05 | Outpatient (BNVA) | payer OTHER, SELFPAY | PROVIDERS: PCP Internal Medicine; Visit Provider Internal Medicine Gastroenterology ==

== ENCOUNTER 2023-11-03 11:31 | Outpatient (AMB) | payer OTHER, SELFPAY ==
[2023-11-03 11:39] VITALS: BP 94/58; PULSE 67; O2SAT 98; BMI 23.6
--- NOTE | 2023-11-03 11:39 | MHC.PC.OV ---
Vital Signs 11/03/23 11:39 Height 5 ft 6 in Weight 146 lb 6 oz BMI 23.6 BP 94/58 L Blood Pressure Location Lt brachial Position Sitting Pulse 67 Pulse Source Pulse Oximeter Pulse Oximetry (%) 98 Oxygen Delivery Method Room Air Intake Visit Reasons: Sinus issues Intake Note: Dr. Meadows's patient is presenting with a sinus issue persisting for over three months. Liability Claims Examiner Required: No Accompanied by: Self / Same As Patient Allergies No Known Allergies [No Known Allergies*] Allergy (Verified 11/03/23 11:47) Medication List - Last Reconciled 11/03/23 by Jacob Anderson PA-C acetaminophen 1,000 mg PO Q6H PRN fluticasone propionate 50 mcg/actuation (Flonase Allergy Relief) 1 spray intranasal DAILY 30 days hydrocortisone 2.5% 1 appl topical BID PRN ibuprofen 600 mg PO QID PRN loratadine (Allergy Relief (loratadine)) 10 mg PO DAILY 30 days nicotine 1 patch transdermal DAILY 14 days pantoprazole 40 mg PO DAILY sucralfate 10 mL PO BID 30 days sulfamethoxazole-trimethoprim 800-160 mg (Bactrim DS) 1 tab PO BID 3 days Tobacco use date assessed: 09/16/23 HPI Sinus issues HPI Details Patient is a 48-year-old male here today for a problem visit. This the 2nd time I am meeting this 48-year-old male with a past medical history significant for GERD, Tobacco dependency,low vitamin-D level anxiety disorder. Patient reports he has been having sinus pressure, headaches and mild cough over the last 3 months. Has use [id number] cough cold medication without much relief. He does report some temporary relief of his sinus pressure, headache and nasal congestion when on antibiotics. He reports he has stopped working and now on FMLA because of his sinus issues and headaches. Unfortunately continues to smoke about a pack of cigarettes per day. He did recently get a sinus x-ray that was essentially clear. CT sinuses recommended. Has referral to ENT specialist and awaiting appointment [facility] Medical History Cough Chronic GERD Hematemesis Right foot pain Vertigo Family history of hypertension Right sided sciatica Elevated MCV Hypovitaminosis D Surgical History Hx of colonoscopy History of esophagogastroduodenoscopy (EGD) No pertinent past surgical history Family History Father No problems noted. Mother Hypertension CVD (cardiovascular disease) Social History Housing: Apartment Alcohol intake: current Alcohol intake frequency: a few times a month Alcohol type: beer Patient Tobacco Use Status: Current everyday Tobacco user Tobacco use type: Cigarette Cigarette Packs Per Day: 0.5 Cigarettes Per Day: 10.0 e-Cigarette/Vaping Use: Never Used Second Hand Smoke Exposure: Yes service: No Current occupational status: employed Current occupational exposures/hazards: No Cognitive needs: No Hearing needs: No Vision needs: Yes Questionnaire Thrive Questionnaire Date Thrive assessed: 10/21/23 DECLAN-7 AMB Questionnaire DECLAN-7 Date DECLAN - 7 assessed: 09/16/23 Source: Developed by Drs. Ish Velazco, Leda Lara, Nate Schaefer and colleagues, with an educational neema from [employer]. Review of Systems Const Denies headache(s) Eyes Denies loss of vision ENT Denies vertigo, Denies dizziness, Denies headache(s) and Denies sore throat Card Denies chest pain, Denies leg edema and Denies lightheadedness Resp Denies cough, Denies hemoptysis and Denies wheezing GI Denies abdominal pain, Denies melena, Denies constipation, Denies diarrhea and Denies vomiting Denies dysuria, Denies urinary frequency and Denies urinary urgency Musc Denies arthralgias, Denies joint swelling, Denies numbness and Denies tingling Neuro Denies Abnormal speech present, Denies behavioral changes, Denies vertigo, Denies dizziness, Denies headache(s), Denies loss of vision, Denies memory loss, Denies numbness and Denies tingling Psych Denies anxiety, Denies behavioral changes, Denies depression, Denies memory loss and Denies panic attacks Michael/Lymph Denies easy bleeding and Denies easy bruising Aller/Immun Denies wheezing Physical exam (Primary Care) Vital Signs: Last Vital Signs Pulse 67 11/03/23 11:39 BP 94/58 L 11/03/23 11:39 Pulse Ox 98 11/03/23 11:39 Oxygen Delivery Method Room Air 11/03/23 11:39 BMI result Body Mass Index 23.6 Tobacco/Smoking Status: Tobacco use Status Tobacco use date assessed 09/16/23 11/03/23 11:41 Patient Tobacco Use Status Current everyday Tobacco 11/03/23 11:41 Tobacco use type Cigarette 11/03/23 11:41 e-Cigarette/Vaping Use Never Used 11/03/23 11:41 Thrive Assessment: Date of Thrive Assessment Date Thrive assessed 10/21/23 11/03/23 11:41 Const General: healthy appearing, no acute distress, alert and awake Nutritional Appearance: well nourished Orientation/consciousness: oriented to person, oriented to place and oriented to time HENMT Other: NOTABLE RHINORRHEA TODAY IN OFFICE Ears: TM's normal bilaterally General nose exam: mucous membranes and turbinates abnormal and Nasal discharge present Eyes Conjunctivae: conjunctivae normal Sclerae: sclerae normal Pupils: Equal, round and reactive pupils present Neck Neck: Yes no lymphadenopathy and Yes no JVD Thyroid: Thyroid normal Carotids: no bruits Resp Effort & Inspection: normal respiratory effort and not tachypneic Auscultation: no crackles, no rales, no rhonchi and no wheezes Cardio Rate: regular rate Rhythm: regular rhythm Heart sounds: no murmurs and normal S1 and S2 GI Palpation (GI): Soft to palpation, nontender, no hepatomegaly and no splenomegaly Auscultation: normal bowel sounds Skin General skin exam: no rashes or lesions noted and dry skin Neuro General: oriented to person, oriented to place and oriented to time Cranial nerves: Yes Equal, round and reactive pupils present Speech: No Abnormal speech present Gait exam (Neuro): Normal gait present Motor exam (neuro): no tremor noted Extrem Right upper extremity: full ROM Left upper extremity: full ROM Right lower extremity: full ROM; no edema Left lower extremity: full ROM; no edema Psych Mental Status: mental status grossly normal Speech and movement: Normal speech and movement present Affect: normal affect Attitude: cooperative Thought process: Normal thought process present Assessment and Plan Assessment & Plan (1) Chronic sinusitis: Code(s): J32.9 - Chronic sinusitis, unspecified Qualifiers: Sinusitis location: frontal Qualified Code(s): J32.1 - Chronic frontal sinusitis Plan: Patient with several month history continued nasal rhinorrhea, sinus pressure and headaches. Has been on multiple rounds of antibiotics, using antihistamine and nasal sprays without much relief. They deny having any pets her rugs in the household. Will supply patient with prednisone taper, new antibiotic and alternative allergy medication(singular), considering RAST allergy panel. Patient does report that allergy medication was somewhat helpful though continues with sinus pressure and headache. Does have a referral to ENT and awaiting call for an appointment. Orders: Orders CT sinus wo IV con 11/03/23 J32.1 - Chronic frontal sinusitis Medications: New prednisone take 3 tabs x 3 days , take 2 tabs x 3 days , take 1 tab x 3 days 10 mg PO DIRECTED 9 days 18 tabs 0RF J32.1 - Chronic frontal sinusitis montelukast 10 mg PO DAILY 90 days 90 tabs 1RF J32.1 - Chronic frontal sinusitis doxycycline monohydrate 100 mg PO BID 7 days 14 caps 0RF J32.1 - Chronic frontal sinusitis ferrous sulfate 325 mg PO DAILY 30 days 30 tabs 1RF D50.9 - Iron deficiency anemia, unspecified On Hold loratadine (Allergy Relief (loratadine)) Hold Comment: Doctor's Order 10 mg PO DAILY 30 days 30 tabs 1RF Coding Level of Care Code Est Pt Level 4 (81300) Diagnoses Chronic frontal sinusitis J32.1 Sinusitis location: frontal
== END 2023-11-03 12:03 | disposition home or self-care (01) ==
PROVIDERS: PCP Internal Medicine; Visit Provider Physician Assistant
DX: J32.1 Chronic frontal sinusitis (principal)
CPT/HCPCS: 99214

== ENCOUNTER 2023-12-13 15:50 | Outpatient (AMB) | payer OTHER, SELFPAY ==
[2023-12-13 15:52] VITALS: BP 110/70; BMI 23.7
--- NOTE | 2023-12-13 15:52 | A.OFFPC_ITS ---
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 Accompanied by: Spouse, children Allergies No Known Allergies [No Known Allergies*] Allergy (Verified 12/13/23 16:21) Medication List - Last Reconciled 12/13/23 by Maria Daugherty MD acetaminophen 1,000 mg PO Q6H PRN ferrous sulfate 325 mg PO DAILY 30 days fluticasone propionate 50 mcg/actuation (Flonase Allergy Relief) 1 spray intranasal DAILY 30 days hydrocortisone 2.5% 1 appl topical BID PRN ibuprofen 600 mg PO QID PRN loratadine (Allergy Relief (loratadine)) 10 mg PO DAILY 30 days montelukast 10 mg PO DAILY 90 days nicotine 1 patch transdermal DAILY 14 days pantoprazole 40 mg PO DAILY sucralfate 10 mL PO BID 30 days Tobacco use date assessed: 09/16/23 Dental Screening Dental Screen Date: 10/21/23 HPI HPI Comments History of Present Illness Details This is a 48-year-old male with mild major depression that comes accompanied by and 2 kids for his physical exam. Depression has been in remission. Last colonoscopy was 2021 showing hyperplastic polyp and internal hemorrhoids. Denies any chest pain or shortness of breath. Complains of earnestine jacy that involve the left eye and left side of the face and are associated with rhinitis. PFSH Medical History (Updated 12/13/23 @ 16:33 by Maria Daugherty MD) Cough Chronic GERD Hematemesis Right foot pain Vertigo Family history of hypertension Right sided sciatica Elevated MCV Hypovitaminosis D Surgical History (Updated 12/13/23 @ 16:26 by Maria Daugherty MD) S/P right rotator cuff repair Hx of colonoscopy History of esophagogastroduodenoscopy (EGD) No pertinent past surgical history Family History Father No problems noted. Mother Hypertension CVD (cardiovascular disease) Social History Housing: Apartment Alcohol intake: current Alcohol intake frequency: a few times a month Alcohol type: beer Patient Tobacco Use Status: Current everyday Tobacco user Tobacco use type: Cigarette Cigarette Packs Per Day: 0.5 Cigarettes Per Day: 10.0 e-Cigarette/Vaping Use: Never Used Second Hand Smoke Exposure: Yes service: No Current occupational status: employed Current occupational exposures/hazards: No Cognitive needs: No Hearing needs: No Vision needs: Yes Questionnaire Thrive Questionnaire Date Thrive assessed: 10/21/23 DECLAN-7 AMB Questionnaire DECLAN-7 Date DECLAN - 7 assessed: 09/16/23 Source: Developed by Drs. Ish Velazco, Leda Lara, Nate Schaefer and colleagues, with an educational neema from [employer]. Review of Systems Const All systems reviewed & are unremarkable except as noted in HPI and below Eyes Reports no additional complaints, Denies change in vision and Denies other visual disturbances Card Denies chest pain at rest, Denies chest pain with activity, Denies edema, Denies irregular heart rhythm, Denies claudication, Denies dyspnea, Denies dyspnea on exertion, Denies orthopnea, Denies paroxysmal nocturnal dyspnea and Denies slow heart rate Resp Denies cough, Denies dyspnea and Denies dyspnea on exertion GI Denies abdominal pain, Denies change in bowel habits, Denies excessive flatus, Denies nausea and Denies vomiting Denies urinary hesitancy, Denies urinary incontinence and Denies urinary urgency Physical exam (Primary Care) Vital Signs: Last Vital Signs BP 110/70 12/13/23 15:52 BMI result Body Mass Index 23.7 Tobacco/Smoking Status: Tobacco use Status Tobacco use date assessed 09/16/23 12/13/23 16:04 Patient Tobacco Use Status Current everyday Tobacco 12/13/23 16:04 Tobacco use type Cigarette 12/13/23 16:04 e-Cigarette/Vaping Use Never Used 12/13/23 16:04 Thrive Assessment: Date of Thrive Assessment Date Thrive assessed 10/21/23 12/13/23 16:04 Const Orientation/consciousness: patient oriented x3 HENMT Head: Yes normal to inspection, Yes normocephalic and Yes atraumatic Ears: external ears normal Eyes General: appearance normal, both eyes and all related structures Eyelids: Yes eyelids normal Conjunctivae: conjunctivae normal Neck Neck: Yes normal visual inspection and Yes supple Resp Effort & Inspection: normal respiratory effort Auscultation: clear to auscultation bilaterally Cardio Jugular venous distension: no JVD Rate: regular rate Rhythm: regular rhythm Heart sounds: S1 normal heart sound present and S2 normal heart sound present GI Inspection: Yes normal to inspection Palpation (GI): Soft to palpation and nontender Auscultation: normal bowel sounds Skin General skin exam: no rashes or lesions noted Neuro General: patient oriented x3 and no focal motor deficits Extrem General: Yes full ROM Psych Appearance: grossly normal Assessment and Plan Assessment & Plan (1) Physical exam: Code(s): Z00.00 - Encounter for general adult medical examination without abnormal findings Plan: Repeat in a year. (2) Mild major depression: Code(s): F32.0 - Major depressive disorder, single episode, mild Plan: In remission. Orders: Orders Vitamin D 25-OH Total Today E55.9 - Vitamin D deficiency, unspecified Complete Blood Count Auto Diff Today D64.9 - Anemia, unspecified Comprehensive [place]. Panel Fast Today Z00.00 - Encounter for general adult medical examination without abnormal findings Lipid Panel Today Z00.00 - Encounter for general adult medical examination without abnormal findings IRON PROFILE Today D64.9 - Anemia, unspecified Coding Level of Care Code Est Pt Prev Care 40-64y(65835) Diagnoses Physical exam Z00.00 Mild major depression F32.0 Time Spent (min) 32
== END 2023-12-13 16:37 | disposition home or self-care (01) ==
PROVIDERS: Visit Provider Internal Medicine
DX: Z00.00 Encounter for general adult medical examination without abnormal findings (principal); F32.0 Major depressive disorder, single episode, mild
CPT/HCPCS: 99396

== ENCOUNTER → 2024-01-18 10:12 | Day surgery (SDC) | payer OTHER, SELFPAY ==
--- NOTE | 2024-01-17 12:26 | HO.ANESPROP2 ---
HPI - Anesthesia Eval Consult details Narrative: 49yo M for Colonoscopy [facility] Active Problems Active Problems: All Active Problems Physical exam (Acute) Chronic sinusitis (Acute) Epigastric abdominal pain (Acute) Post-nasal drip (Acute) Mild major depression (Acute) Ophthalmoplegic migraine (Acute) Weight loss (Acute) Orbital cellulitis, right (Acute) Tobacco dependence (Acute) Bronchitis (Acute) Sinusitis (Acute) Constipation (Acute) Anxiety (Acute) Depression (Acute) Eye exam, routine (Acute) Screening for prostate cancer (Acute) Adult general medical exam (Acute) Abdominal pain (Acute) Polyuria (Acute) Cocaine use disorder (Acute) Low vitamin D level (Acute) Low TSH level (Acute) Pruritic rash (Acute) Polyarthralgia (Acute) Ringing in left ear (Acute) Right elbow pain (Acute) Left knee pain (Acute) Altered bowel habits (Acute) Chronic GERD (Acute) Vertigo (Acute) Family history of hypertension (Acute) Right sided sciatica (Acute) Elevated MCV (Acute) Hypovitaminosis D (Acute) Past Medical History Medical History (Updated 12/13/23 @ 16:33 by Maria Daugherty MD) Cough Chronic GERD Hematemesis Right foot pain Vertigo Family history of hypertension Right sided sciatica Elevated MCV Hypovitaminosis D Family History Family History Father No problems noted. Mother Hypertension CVD (cardiovascular disease) Family history of problems with anesthesia: No Surgical History Surgical History (Updated 12/13/23 @ 16:26 by Maria Daugherty MD) S/P right rotator cuff repair Hx of colonoscopy History of esophagogastroduodenoscopy (EGD) No pertinent past surgical history History of Problems with Anesthesia: No Social History Social History Housing: Apartment Alcohol intake: current Alcohol intake frequency: a few times a month Alcohol type: beer Patient Tobacco Use Status: Current everyday Tobacco user Tobacco use type: Cigarette Cigarette Packs Per Day: 0.5 Cigarettes Per Day: 10.0 e-Cigarette/Vaping Use: Never Used Second Hand Smoke Exposure: Yes service: No Current occupational status: employed Current occupational exposures/hazards: No Cognitive needs: No Hearing needs: No Vision needs: Yes Meds Allergies Allergy/AdvReac Type Severity Reaction Status Date / Time No Known Allergies Allergy Verified 12/13/23 16:21 [No Known Allergies*] Home Medications ?Medication ?Instructions ?Recorded ?Confirmed ?Last Taken ?Type acetaminophen 500 mg tablet 1,000 mg PO Q6H PRN pain 12/03/22 12/13/23 Unknown History Assessment and Plan Assessment Anesthesia Assessment: Chart Reviewed Final Anesthetic Review Family History of Problems with Anesthesia: No History of Problems with Anesthesia: No
[2024-01-18 11:37] VITALS: BMI 23.6
[2024-01-18 11:41] VITALS: BP 111/67; PULSE 57; RESP 15; TEMP 36.5; O2SAT 97
[2024-01-18] MEDS: Lactated Ringers 1,000 ML 100 ML IVCONT (12:06)
[2024-01-18 12:30] LABS: Amphetamine Screen Urine Not Detected (Not Detect); Barbiturates, Urine Not Detected (Not Detect); Benzodiazepines Screen Urine Not Detected (Not Detect); Buprenorphine Scr Not Detected (Not Detect); Cannabinoid Screen Urine Not Detected (Not Detect); Cocaine Screen Urine POSITIVE (Not Detect); Fentanyl, urine Not Detected (Not Detect); Methadone Screen, Urine Not Detected (Not Detect); Opiate Screen Urine Not Detected (Not Detect); Oxycodone Screen Urine Not Detected (Not Detect); Phencyclidine Screen Urine Not Detected (Not Detect)
--- NOTE | 2024-01-18 12:38 | PC.NURSE ---
utox + cocaine reported to Dr. Mooney - results shown in computer. diplomatic interpreter/translator at this bedside with Dr. Mooney. to evaluate whether to proceed with procedure.
--- NOTE | 2024-01-18 12:40 | PC.NURSE ---
case cancelled per dr. Mooney Iv d/c'd pt &dsd applied - no oozing.pt educated on no drugs prior to procedures, verbalizes understanding.
--- NOTE | 2024-01-18 13:49 | PC.NURSE ---
addendum to previous note. pt dressed , called ride and went down immedately s/p dressing.
== END ==
LOC: HO.SSS 10:13
PROVIDERS: Anesthesiology; PCP Internal Medicine; Visit Provider Internal Medicine Gastroenterology
DX: K21.9 Gastro-esophageal reflux disease without esophagitis (principal); F14.90 Cocaine use, unspecified, uncomplicated; Z79.899 Other long term (current) drug therapy
CPT/HCPCS: 80307; J1596; J2704

== ENCOUNTER 2024-02-24 14:10 | Outpatient (AMB) | payer OTHER, SELFPAY ==
--- NOTE | 2024-02-24 14:16 | MHC.OFFVIS ---
Vital Signs 02/24/24 14:34 Height 5 ft 6 in Weight 150 lb 8 oz BMI 24.3 BP 115/70 Blood Pressure Location Lt brachial Position Sitting Pulse 68 Pulse Source Pulse Oximeter Pulse Oximetry (%) 98 Oxygen Delivery Method Room Air Intake Visit Reasons: ophthalmologic migraine Intake Note: Patient presents for ophthalmologic migraine. would like a Cat scan of the left eye. I get severe migraines every day, I feel the tapping pain behind the eye and it feels like the eyeball is going to pop out. Eye swells and bulges out when having migraine. Sees flashing lights and constant tears come out. Treating Plant Supervisor Required: Yes Treating Plant Supervisor Language: Belt Polisher Name: Silvia Alarcon- . Allergies No Known Allergies [No Known Allergies*] Allergy (Verified 02/24/24 14:32) HPI Comments Details: Right-handed 49-yr-old male presents for new pt evaluation of headache disorder. Pt is accompanied by his , Silvia. Pt opts to have his assist w/ [place] interpretation throughout visit, declination of [facility] tire manager services form signed. Pt reports he has had headaches for a while, but these have worsened over the last 1.5 yrs, and became constant about 4 months ago. They are now left sided and severe. He thought these were d/t recurrent sinus infections, which pt states have been tx'd repeatedly over the past 2 yrs. He was referred to ENT, but they wanted him to see neurology first. 10/21/23, sinus XR- negtaive. PMH and ROS are notable for:? Musculoskeletal disorders or injury: arthritis Cramps: at times in the arms and legs, hand Mood d/o: Anxiety, Depression Respiratory d/o: bronchitis and sinusitis History of seizure, syncope, or drop attacks: Pt has had 2 episodes of unprovoked syncope after standing preceded by ear ringing- 1yr ago and 5 yrs ago. GI d/o: Constipation- at times. 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 Typical headache characteristics: Prodrome symptoms: None Aura: None Pain intensity: Severe. Location, quality, characteristics: Left eye watering f/b left Vi/V2 distribution stabbing pain, eye red, and left runny nose, left inner eye swelling. states left eye will look pushed out. Associated symptoms: photophobia, phonophobia, osmophobia, allodynia, spinning dizziness, not right in space dizziness, lightheadedness, fatigue, cognitive difficulties, generalized weakness. Postdrome: now constant Triggers: if it is cloudy. Or if he gets wet- (? if this triggered by or simply coinciding w/ the timing of his daily am showerr) Time of day: the most severe attacks start between 3-7am Duration and Frequency: the severe pain attack lasts 1 hr. How does headache impact your life? cannot do his daily activities. Current acute medication use/interventions: Tylenol Current preventative medication use: None Non-pharmacological interventions: None [facility] Medical History (Updated 02/24/24 @ 16:57 by INA Steele) Arthritis Cough Chronic GERD Hematemesis Right foot pain Vertigo Family history of hypertension Right sided sciatica Elevated MCV Hypovitaminosis D Surgical History S/P right rotator cuff repair Hx of colonoscopy History of esophagogastroduodenoscopy (EGD) No pertinent past surgical history Family History Father No problems noted. Mother Hypertension CVD (cardiovascular disease) Social History Housing: Apartment Alcohol intake: current Alcohol intake frequency: a few times a month Alcohol type: beer Patient Tobacco Use Status: Current everyday Tobacco user Tobacco use type: Cigarette Cigarette Packs Per Day: 0.5 Cigarettes Per Day: 10 e-Cigarette/Vaping Use: Never Used Second Hand Smoke Exposure: Yes service: No Current occupational status: employed Current occupational exposures/hazards: No Cognitive needs: No Hearing needs: No Vision needs: Yes Physical Exam Vital Signs: Last Vital Signs Pulse 68 02/24/24 14:34 BP 115/70 02/24/24 14:34 Pulse Ox 98 02/24/24 14:34 Oxygen Delivery Method Room Air 02/24/24 14:34 BMI result Body Mass Index 24.3 Const Orientation/consciousness: patient oriented x3 HEENT Head: Yes normocephalic Resp Effort & Inspection: normal respiratory effort and able to speak in complete sentences Neuro Other: Photophobic EOM- elicits an uneasy feeling Left trochlear tenderness on palpation. Manny TMJ crepitus. General: patient oriented x3 Cranial nerves: Yes CN's II-XII intact bilaterally Cognition (Neuro): normal cognition Gait exam (Neuro): Normal gait present Motor exam (neuro): 5/5 motor strength present throughout Deep tendon reflexes (DTR's): Right triceps reflex intensity grade: 2+, Left triceps reflex intensity grade: 2+, Rt Biceps (C5, C6): 2+, Left biceps reflex intensity grade: 2+, Right brachioradialis reflex intensity grade: 2+, Left brachioradialis reflex intensity grade: 2+, Right patellar reflex intensity grade: 2+ and Left patellar reflex intensity grade: 2+ Coordination: [id number] test normal, tandem gait normal and Romberg test negative Pupils: Normal pupillary reactivity/response: bilateral Psych Appearance: grossly normal Mental Status: mental status grossly normal Speech and movement: Normal speech and movement present Affect: normal affect Attitude: cooperative Thought process: Normal thought process present Assessment & Plan Assessment & Plan (1) Worsening headaches: Code(s): R51.9 - Headache, unspecified Category: Medical (2) Autonomic attacks: Code(s): G40.109 - Localization-related (focal) (partial) symptomatic epilepsy and epileptic syndromes with simple partial seizures, not intractable, without status epilepticus Category: Medical (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 autonomic cephalalgia headache phenotype and unlikely to be d/t sinusitis- (Oct 2023 sinus XR- clear), pt is advised to undergo the following studies to assess for underlying systemic and intracranial secondary etiologies: Lab work-up Brain MRI w/wo Brain MRA w/o Brain MRV w/wo Also baseline EKG- prior to starting Verapamil. For overall headache management: Optimize good self-care, including but not limited to maintaining a healthy diet, adequate fluid intake, adequate sleep, and engaging in regular physical activity. Track headaches, especially after any treatment regimen changes. [employer] is one of many headache tracking apps. For acute headache treatment: Discussed importance of taking acute medications at the first sign of headache, however stressed importance of avoiding acute medication overuse (especially with combined headache medications). Trial Sumatriptan 100mg tab, 1/2 - 1 tab (50-100mg) at onset of headache, may repeat in 2 hours. Max of 2 tabs (200mg) per 24 hours. May adjunct with OTC Tylenol 650mg q 4 hours, Ibuprofen 600mg q 6 hours, or Naproxen 440mg q 12 hrs prn. Trial Sumatriptan 6mg sub-q inj- at onset of attack, may reap in 1 hr. (max 12mg per day). Potential adverse effects of triptans, including but not limited to nausea, fatigue, chest tightness/tingling (usually passes within a few minutes), medication overuse headaches. Previous acute migraine medication trials: Tylenol- not effective. Acute migraine medication contraindications: None at this time For headache prevention medication: Preventative medications should be taken routinely as prescribed for best effect, it may take several weeks for full effect to take effect. Start Verapamil ER 100mg qhs. Previous migraine prevention medication trials: None Migraine prevention medication contraindications: caution w/ Aimovig/qulipta- d/t constipation risk. Pt seen in collaboration w/ Dr Araceli Britton. Follow-up upon review of above . Pt to follow-up in clinic 3 months or sooner prn. Orders: Orders Rheumatoid Factor 02/24/24 G40.109 - Localization-related (focal) (partial) symptomatic epilepsy and epileptic syndromes with simple partial seizures, not intractable, without status epilepticus, R51.9 - Headache, unspecified Vitamin B12 and Folate 02/24/24 G40.109 - Localization-related (focal) (partial) symptomatic epilepsy and epileptic syndromes with simple partial seizures, not intractable, without status epilepticus, R51.9 - Headache, unspecified Erythrocyte Sedimentation Rate 02/24/24 G40.109 - Localization-related (focal) (partial) symptomatic epilepsy and epileptic syndromes with simple partial seizures, not intractable, without status epilepticus, R51.9 - Headache, unspecified CRP High Sensitivity 02/24/24 G40.109 - Localization-related (focal) (partial) symptomatic epilepsy and epileptic syndromes with simple partial seizures, not intractable, without status epilepticus, R51.9 - Headache, unspecified HIV Ab/Ag 02/24/24 G40.109 - Localization-related (focal) (partial) symptomatic epilepsy and epileptic syndromes with simple partial seizures, not intractable, without status epilepticus, R51.9 - Headache, unspecified Syphilis Screen 02/24/24 G40.109 - Localization-related (focal) (partial) symptomatic epilepsy and epileptic syndromes with simple partial seizures, not intractable, without status epilepticus, R51.9 - Headache, unspecified MR angio head wo con 02/24/24 G40.109 - Localization-related (focal) (partial) symptomatic epilepsy and epileptic syndromes with simple partial seizures, not intractable, without status epilepticus, R51.9 - Headache, unspecified MR head/brain wo/w con 02/24/24 G40.109 - Localization-related (focal) (partial) symptomatic epilepsy and epileptic syndromes with simple partial seizures, not intractable, without status epilepticus, R51.9 - Headache, unspecified ECG 12 lead EKG 02/24/24 G40.109 - Localization-related (focal) (partial) symptomatic epilepsy and epileptic syndromes with simple partial seizures, not intractable, without status epilepticus Complete Blood Count Auto Diff 02/24/24 G40.109 - Localization-related (focal) (partial) symptomatic epilepsy and epileptic syndromes with simple partial seizures, not intractable, without status epilepticus, R51.9 - Headache, unspecified Comprehensive Met. Panel 02/24/24 G40.109 - Localization-related (focal) (partial) symptomatic epilepsy and epileptic syndromes with simple partial seizures, not intractable, without status epilepticus, R51.9 - Headache, unspecified CASPER Reflex Titer and Pattern 02/24/24 G40.109 - Localization-related (focal) (partial) symptomatic epilepsy and epileptic syndromes with simple partial seizures, not intractable, without status epilepticus, R51.9 - Headache, unspecified TSH reflex Free T4 02/24/24 G40.109 - Localization-related (focal) (partial) symptomatic epilepsy and epileptic syndromes with simple partial seizures, not intractable, without status epilepticus, R51.9 - Headache, unspecified MR venography head wo/w con 02/24/24 G40.109 - Localization-related (focal) (partial) symptomatic epilepsy and epileptic syndromes with simple partial seizures, not intractable, without status epilepticus, R51.9 - Headache, unspecified Medications: New sumatriptan succinate (0.5 - 1 x 100 mg) 50 - 100 mg orally at onset of headache, may repeat in 2 hrs PRN; max 2 tabs per day (may take with Tylenol) 30 days 20 tabs 6RF migraine headache G44.099 - Other trigeminal autonomic cephalgias (TAC), not intractable verapamil ER 100 mg PO BEDTIME 30 days 30 caps 3RF G40.109 - Localization-related (focal) (partial) symptomatic epilepsy and epileptic syndromes with simple partial seizures, not intractable, without status epilepticus sumatriptan succinate may repeat x's 1 6 mg (0.5 mL) subcut ONCE 14 days PRN 7 mL 3RF cluster headache G44.099 - Other trigeminal autonomic cephalgias (TAC), not intractable Coding Level of Care Code New Pt Level 4 (77873) Diagnoses Worsening headaches R51.9 Autonomic attacks G40.109 Trigeminal autonomic cephalgias G44.099
[2024-02-24 14:34] VITALS: BP 115/70; PULSE 68; O2SAT 98; BMI 24.3
== END 2024-02-24 16:14 | disposition home or self-care (01) ==
PROVIDERS: PCP Internal Medicine; Visit Provider Nurse Practitioner Family
DX: G40.109 Localization-related (focal) (partial) symptomatic epilepsy and epileptic syndromes with simple partial seizures, not intractable, without status epilepticus (principal); G44.099 Other trigeminal autonomic cephalgias (TAC), not intractable
CPT/HCPCS: 99204

== ENCOUNTER → 2024-02-24 14:10 | Outpatient (BNVA) | payer OTHER, SELFPAY | PROVIDERS: PCP Internal Medicine; Visit Provider Nurse Practitioner Family ==

== ENCOUNTER 2024-03-31 11:36 | Outpatient (REF) | payer OTHER, SELFPAY ==
--- NOTE | 2024-03-31 11:41 | ECG_ITS ---
Test Reason : SYMPTOMATIC EPILEPSY Blood Pressure : / mmHG Vent. Rate : 061 BPM Atrial Rate : 061 BPM P-R Int : 178 ms QRS Dur : 082 ms QT Int : 384 ms P-R-T Axes : 057 048 016 degrees QTc Int : 386 ms Normal sinus rhythm Normal ECG No previous ECGs available Referred By: Oralia Tilley Electronically Signed By:CHUCKIE NAYLOR MD
[2024-03-31 12:04] LABS: MANUAL DIFF FLAG NO
[2024-03-31 12:26] LABS: Basophils Absolute Auto 0.1 X10*3/uL (0.0-0.2); Basophils Percent Auto 1.2 % (0-2); Eosinophils Absolute Auto 0.8 X10*3/uL (0.0-0.4); Hematocrit 44.6 % (42.0-52.0); Hemoglobin 15.2 g/dl (14.0-18.0); Imm Gran Abs Auto 0.01 X10*3/uL (0.00-0.03); Imm Gran Pct Auto 0.1 % (0.0-0.4); Lymphocytes Absolute Auto 2.8 X10*3/uL (1.2-4.9); Lymphocytes Percent Auto 40.2 % (20-40); Mean Corpuscular HGB Conc 34.1 g/dl (31.0-36.0); Mean Corpuscular Hemoglobin 34.5 pg (27.0-33.0); Mean Corpuscular Volume 101.1 fL (80.0-98.0); Mean Platelet Volume 9.3 fL (9.4-12.4); Monocytes Absolute Auto 0.6 X10*3/uL (0.1-1.2); Monocytes Percent Auto 8.5 % (2-11); Neutrophils Absolute Auto 2.7 x10*3/uL (2.0-8.3); Platelet Count 291 X10*3/uL (160-400); Red Blood Count 4.41 X10*6/uL (4.60-5.80); Red Cell Distribution Width 13.7 % (11.0-16.0); White Blood Count 6.8 X10*3/uL (4.8-10.8)
[2024-03-31 13:03] LABS: Erythrocyte Sedimentation Rate 2 MM/HR (0-15)
[2024-03-31 20:59] LABS: Rheumatoid Factor < 13.0 IU/mL (<15.0)
[2024-03-31 21:28] LABS: Folate 8.8 ng/mL (> or = 4.0); Vitamin B12 626 pg/mL (200-900)
[2024-03-31 21:35] LABS: Alanine Aminotransferase 13 U/L (0-40); Albumin Level 4.5 g/dL (3.5-5.0); Alkaline Phosphatase 72 U/L (39-117); Anion Gap 14 (12-20); Aspartate Amino Transferase 22 U/L (5-37); Bilirubin Total 0.7 mg/dL (0.0-1.0); Blood Urea Nitrogen 8 mg/dL (9-16); Calcium 9.6 mg/dL (8.4-10.2); Carbon Dioxide 28 mmol/L (22-29); Chloride 105 mmol/L (96-108); Estimated Glomerular Filt Rate > 60; Glucose Random 65 mg/dL (60-115); Potassium 4.7 mmol/L (3.3-5.1); Sodium 142 mmol/L (135-145); TSH reflex Free T4 0.22 uIU/mL (0.32-4.0); Total Protein 7.5 g/dL (6.5-8.0)
[2024-04-01 03:31] LABS: Syphilis Screen Nonreactive (Nonreactive)
[2024-04-01 03:48] LABS: HIV AB/AG Nonreactive (Nonreactive); HIV Num 1 0.05 S/CO (0.00-0.99)
[2024-04-03 06:59] LABS: CRP High Sensitivity 2.7 mg/L
[2024-04-07 09:28] LABS: Anti Nuclear Antibody Screen NEGATIVE (NEGATIVE)
== END 2024-03-31 11:37 | disposition home or self-care (01) ==
LOC: HO.LAB 11:36
PROVIDERS: PCP Internal Medicine; Visit Provider Nurse Practitioner Family
DX: G40.109 Localization-related (focal) (partial) symptomatic epilepsy and epileptic syndromes with simple partial seizures, not intractable, without status epilepticus (principal); R51.9 Headache, unspecified
CPT/HCPCS: 36415; 80053; 82607; 82746; 84439; 84443; 85025; 85652; 86038; 86141; 86431; 86780; 87389; 93005

== ENCOUNTER → 2024-03-31 11:41 | Outpatient (BNV) | payer OTHER, SELFPAY | PROVIDERS: PCP Internal Medicine; Visit Provider Internal Medicine Cardiovascular Disease | DX: G40.909 Epilepsy, unspecified, not intractable, without status epilepticus (principal) | CPT/HCPCS: 93010 ==

== ENCOUNTER 2024-04-12 14:49 | Outpatient (REF) | payer OTHER, SELFPAY ==
--- NOTE | ~2024-04-12 | US_ITS ---
EXAMINATION: US THYROID CLINICAL INFORMATION: Nontoxic goiter, unspecified. COMPARISON: None available. TECHNIQUE: Linear transducer grayscale and color Doppler examination with attention to the region of the thyroid. FINDINGS: SIZE: Measurements of the thyroid lobes and nodules are given in sagittal, anteroposterior and transverse dimensions respectively. Right Thyroid Lobe: 4.7 x 1.8 x 1.4 cm, volume 6.2 mL. Parenchyma: The gland echotexture is homogeneous. Thyroid vascularity is normal. Left Thyroid Lobe: 5.2 x 1.5 x 1.4 cm, volume 5.7 mL. Parenchyma: The gland echotexture is homogeneous. Thyroid vascularity is normal. Isthmus: 0.3 cm in maximum AP dimension. No focal thyroid nodule is seen. NODES: No lymphadenopathy is seen in the tissue surrounding the thyroid gland. US/US thyroid IMPRESSION: No suspicious thyroid nodules. ACR TI-RADS RECOMMENDATION REFERENCE: Ultrasound-guided fine-needle aspiration, followup ultrasound, no further follow up. * TR1 (0 point) and TR2 (2 points): No FNA or follow up. * TR3 (3 points): FNA if more than or equal to 2.5 cm in maximum dimension, followup ultrasound in 1, 3 and 5 years if 1.5 to 2.4 cm in maximum dimension. * TR4 (4-6 points): FNA if more than or equal to 1.5 cm in maximum dimension, followup ultrasound in 1, 2, 3 and 5 years if 1 to 1.4 cm in maximum dimension. * TR5 (more than or equal to 7 points): FNA if more than or equal to 1 cm in maximum dimension, followup ultrasound every year for 5 years if 0.5 to 0.9 cm in maximum dimension. * TR3, TR4 or TR5 nodules that are below the size threshold for followup receive no follow up.
== END 2024-04-12 14:50 | disposition home or self-care (01) ==
LOC: HO.US 14:49
PROVIDERS: PCP Internal Medicine; Visit Provider Internal Medicine
DX: E04.9 Nontoxic goiter, unspecified (principal)
CPT/HCPCS: 76536

== ENCOUNTER → 2024-04-21 10:58 | Outpatient (BNVA) | payer OTHER, SELFPAY | PROVIDERS: PCP Internal Medicine; Visit Provider Nurse Practitioner Family ==

== ENCOUNTER 2024-05-04 09:31 | Outpatient (REF) | payer OTHER, SELFPAY ==
--- NOTE | ~2024-05-04 | MR_ITS ---
EXAMINATION: MR ANGIOGRAPHY BRAIN WITHOUT CONTRAST CLINICAL INFORMATION: 49-year-old with headache, unspecified. COMPARISON: None available. TECHNIQUE: 3-D [id number] MR angiography of the intracranial circulation was done with multiplanar reformatted reconstructions. FINDINGS: The intracranial internal carotid arteries are patent and normal in caliber. There is a 2 mm triangular-shaped infundibulum associated with the origin of the right posterior communicating artery. The A1 and A2 segments are patent and normal in caliber. The anterior communicating artery is only faintly visualized. There is a hairpin loop at the junction of the right A1 and A2 segments. The M1 segments, MCA bifurcations/trifurcations appear within normal limits with a normal appearance to the M2 branches. No discrete aneurysms are seen within the anterior circulation. The intradural vertebral arteries are patent, with the left being dominant and the right being hypoplastic, terminating in a PICA. A left PICA is visualized. The basilar artery is tortuous but otherwise smoothly contoured and normal in caliber with anterior inferior cerebral arteries visualized. The superior cerebral arteries and posterior cerebral arteries are patent and normal in caliber. No posterior circulation aneurysms are seen. A left posterior communicating artery is also visualized. MR/MR angio head wo con IMPRESSION: 1. No evidence for intracranial aneurysm or high-flow vascular malformation. 2. No evidence for significant intracranial arterial stenosis or segmental occlusion. Electronically signed by: Librado Tan MD 05/24/2024 05:03 PM EDT
--- NOTE | ~2024-05-04 | MR_ITS ---
MRI OF THE BRAIN WITH AND WITHOUT IV CONTRAST MRV AND MRA BRAIN WITHOUT IV CONTRAST INDICATION: Headache. COMPARISON: None available. TECHNIQUE: Multiplanar multisequence MR imaging of the brain was obtained without and following the administration of 7.5 mL of Gadavist IV contrast. Additionally, a noncontrast MRA and MRV of the head are obtained. Vascular post-processing, including 2-dimensional and 3-dimensional reformatted images were created and reviewed on an independent workstation under concurrent physician supervision. Stenoses are graded per criteria similar to NASCET. FINDINGS: BRAIN MRI: No pathologic enhancement intracranially. There is no hydrocephalus, extra-axial surface collection, or herniation. There are mild T2 signal changes scattered throughout the supratentorial white matter, the majority in the subcortical frontoparietal white matter which are nonspecific though that can be seen in the setting of migraine headaches. The major flow voids at the skull base are preserved. There is no acute infarct on diffusion-weighted imaging. There is no intracranial hemorrhage on the gradient recalled echo acquisition. The midline structures are normal. The cerebellar tonsils are normally positioned. The cerebellum and brainstem are normal. The craniocervical junction is normal. Osseous marrow signal intensity is homogenous. The visualized soft tissues are unremarkable. Mucosal thickening throughout the paranasal sinuses. MRA HEAD: The anterior and posterior intracranial arterial circulations are normal in caliber. There are no significant arterial stenoses and there are no acute arterial occlusions intracranially. No aneurysms. MRV HEAD: The superficial and deep venous systems are widely patent. There is no cerebral venous thrombosis. MR/MR venography head wo/w con IMPRESSION: * No acute intracranial findings and no pathologic enhancement intracranially or. There are mild T2 signal changes scattered throughout the supratentorial white matter, the majority in the subcortical frontoparietal white matter which are nonspecific though that can be seen in the setting of migraine headaches. * Unremarkable MRA and MRV of the head. Electronically signed by: Jhonny Briggs MD 05/24/2024 01:49 PM EDT
[2024-05-04] MEDS: gadobutroL 7.5 ML VIAL IVPUSH (11:55)
== END 2024-05-04 09:32 | disposition home or self-care (01) ==
LOC: HO.MRI 09:31
PROVIDERS: PCP Internal Medicine; Visit Provider Nurse Practitioner Family
DX: G44.099 Other trigeminal autonomic cephalgias (TAC), not intractable (principal); G40.109 Localization-related (focal) (partial) symptomatic epilepsy and epileptic syndromes with simple partial seizures, not intractable, without status epilepticus; R51.9 Headache, unspecified
CPT/HCPCS: 70544; 70546; 70553; A9585

== ENCOUNTER 2024-11-03 10:18 | Outpatient (AMB) | payer OTHER, SELFPAY ==
[2024-11-03 10:24] VITALS: BP 110/70; PULSE 71; O2SAT 97; BMI 24.5
--- NOTE | 2024-11-03 10:24 | MHC.OFFVIS ---
Vital Signs 11/03/24 10:24 Height 5 ft 6 in Weight 152 lb BMI 24.5 BP 110/70 Blood Pressure Location Lt brachial Position Sitting Pulse 71 Pulse Source Pulse Oximeter Pulse Oximetry (%) 97 Oxygen Delivery Method Room Air Intake Visit Reasons: Follow Up Grocery Department Manager Required: No Grocery Department Manager Services: Grocery Department Manager Offered & Declined Allergies No Known Allergies [No Known Allergies*] Allergy (Verified 02/24/24 14:32) Medication List - Last Reconciled 11/03/24 by INA Steele acetaminophen 1,000 mg PO Q6H PRN ferrous sulfate 325 mg PO DAILY 30 days fluticasone propionate 50 mcg/actuation (Flonase Allergy Relief) 1 spray intranasal DAILY 30 days galcanezumab-gnlm (Emgality) 300 mg subcutaneously monthly; send order to in-house pharmacy for it [place] [facility] [place] 30 days hydrocortisone 2.5% 1 appl topical BID PRN ibuprofen 600 mg PO QID PRN loratadine (Allergy Relief (loratadine)) 10 mg PO DAILY 30 days montelukast 10 mg PO DAILY PRN nicotine 1 patch transdermal DAILY 14 days Oxygen Home Use 12-15 LPM via non-rebreather x's 20 minutes prn onset of cluster headache attack. Supply M and E tanks. pantoprazole 40 mg PO DAILY rizatriptan 5 - 10 mg (0.5 - 1 x 10 mg) PO Q2H PRN 30 days sucralfate 10 mL PO BID 30 days HPI Comments Details: Right-handed 49-yr-old male presents for follow-up of headache. Pt is accompanied by his , Silvia. Patient reports that he continues to have severe left-sided headache associated with right autonomic symptoms, triggered by cold exposure and morning shower. Once the headache starts, it can last an hour. He can have more than 1 attack per day. Baseline headache attack: Pain intensity: Severe. Location, quality, characteristics: Left eye watering f/b left Vi/V2 distribution stabbing pain, eye red, and left runny nose, left inner eye swelling. states left eye will look pushed out. Associated symptoms: photophobia, phonophobia, osmophobia, allodynia, spinning dizziness, not right in space dizziness, lightheadedness, fatigue, cognitive difficulties, generalized weakness. In between attacks, light touch, wind, wearing a hat, or other like mechanical stimuli do not trigger headache. He felt the verapamil had helped some. He denies any recent lightheadedness. BP runs low, can be hypotensive at times. After last visit, he had called reporting exacerbation of the left-sided headache. We have placed an order for carbamazepine 100 mg b.i.d., he is not sure if he tried it not. Sumatriptan 100mg oral tablet helped the headache, but caused chest discomfort/palpitations. He tried sumatriptan injection once, he thinks it might have helped the headache, but he is hesitant to do this injection on his own. The verapamil has helped some. 05/04/2024 MR/MR head/brain wo/w con IMPRESSION: * No acute intracranial findings and no pathologic enhancement intracranially or. There are mild T2 signal changes scattered throughout the supratentorial white matter, the majority in the subcortical frontoparietal white matter which are nonspecific though that can be seen in the setting of migraine headaches. * Unremarkable MRA and MRV of the head. 02/24/2024, Initial HPI: Pt reports he has had headaches for a while, but these have worsened over the last 1.5 yrs, and became constant about 4 months ago. They are now left sided and severe. He thought these were d/t recurrent sinus infections, which pt states have been tx'd repeatedly over the past 2 yrs. He was referred to ENT, but they wanted him to see neurology first. 10/21/23, sinus XR- negtaive. PMH and ROS are notable for:? Musculoskeletal disorders or injury: arthritis Cramps: at times in the arms and legs, hand Mood d/o: Anxiety, Depression Respiratory d/o: bronchitis and sinusitis History of seizure, syncope, or drop attacks: Pt has had 2 episodes of unprovoked syncope after standing preceded by ear ringing- 1yr ago and 5 yrs ago. GI d/o: Constipation- at times. 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 Typical headache characteristics: Prodrome symptoms: None Aura: None Pain intensity: Severe. Location, quality, characteristics: Left eye watering f/b left Vi/V2 distribution stabbing pain, eye red, and left runny nose, left inner eye swelling. states left eye will look pushed out. Associated symptoms: photophobia, phonophobia, osmophobia, allodynia, spinning dizziness, not right in space dizziness, lightheadedness, fatigue, cognitive difficulties, generalized weakness. Postdrome: now constant Triggers: if it is cloudy. Or if he gets wet- (? if this triggered by or simply coinciding w/ the timing of his daily am shower) Time of day: the most severe attacks start between 3-7am Duration and Frequency: the severe pain attack lasts 1 hr. How does headache impact your life? cannot do his daily activities. Current acute medication use/interventions: Tylenol Current preventative medication use: None Non-pharmacological interventions: None [facility] Medical History (Updated 11/03/24 @ 13:02 by INA Steele) Arthritis Cough Chronic GERD Hematemesis Right foot pain Vertigo Family history of hypertension Right sided sciatica Elevated MCV Hypovitaminosis D Surgical History S/P right rotator cuff repair Hx of colonoscopy History of esophagogastroduodenoscopy (EGD) No pertinent past surgical history Family History Father No problems noted. Mother Hypertension CVD (cardiovascular disease) Social History Housing: Apartment Alcohol intake: current Alcohol intake frequency: a few times a month Alcohol type: beer Patient Tobacco Use Status: Current everyday Tobacco user Tobacco use type: Cigarette Cigarette Packs Per Day: 0.5 Cigarettes Per Day: 10 e-Cigarette/Vaping Use: Never Used Second Hand Smoke Exposure: Yes service: No Current occupational status: employed Current occupational exposures/hazards: No Cognitive needs: No Hearing needs: No Vision needs: Yes Physical Exam Vital Signs: Last Vital Signs Pulse 71 11/03/24 10:24 BP 110/70 11/03/24 10:24 Pulse Ox 97 11/03/24 10:24 Oxygen Delivery Method Room Air 11/03/24 10:24 BMI result Body Mass Index 24.5 Const Orientation/consciousness: patient oriented x3 HEENT Head: Yes normocephalic Resp Effort & Inspection: normal respiratory effort and able to speak in complete sentences Neuro General: patient oriented x3 Cranial nerves: Yes CN's II-XII intact bilaterally Cognition (Neuro): normal cognition Gait exam (Neuro): Normal gait present Motor exam (neuro): 5/5 motor strength present throughout Pupils: Normal pupillary reactivity/response: bilateral Psych Appearance: grossly normal Mental Status: mental status grossly normal Speech and movement: Normal speech and movement present Affect: normal affect Attitude: cooperative Thought process: Normal thought process present Assessment & Plan Assessment & Plan (1) Cluster headache: Code(s): G44.009 - Cluster headache syndrome, unspecified, not intractable Category: Medical (2) Autonomic attacks: Code(s): G40.109 - Localization-related (focal) (partial) symptomatic epilepsy and epileptic syndromes with simple partial seizures, not intractable, without status epilepticus Category: Medical (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 Lab work was notable for low TSH 0.22- we will recheck TSH. We will check vitamin-D level. Discussed that patient's headache phenotype is most consistent at this time with cluster headache. He had considered possible trigeminal neuralgia diagnosis, however patient does not have typical symptoms of multiple brief severe attacks triggered by light mechanical stimuli- and thus we will discontinue carbamazepine order. We are unable to conduct a indomethacin trial, as patient is prone to gastritis. For overall headache management: Optimize good self-care, including but not limited to maintaining a healthy diet, adequate fluid intake, adequate sleep, and engaging in regular physical activity. Track headaches. For acute cluster headache treatment: Discussed importance of taking acute medications at the first sign of headache, however stressed importance of avoiding acute medication overuse (especially with combined headache medications). Discontinue Sumatriptan 100mg tab and sumatriptan 6 mg injection- as oral tab cause chest discomfort. Trial Rizatriptan 10mg tab, 1/2 - 1 tab (5-10mg) at onset of headache, may repeat in 2 hours. Max of 2 tabs (200mg) per 24 hours. May adjunct with OTC Tylenol 650mg every 4 hours, Ibuprofen (liquigel) 600mg every 6 hours, or Naproxen (liquigel) 440mg every 12 hrs as needed. Potential adverse effects of triptans, include but are not limited to nausea, fatigue, chest tightness/tingling (usually passes within a few minutes), medication overuse headaches. Start home oxygen 12-15 LPM via non-rebreather mask x's 15-20 minutes at onset of cluster headache attack. We will request both E and M tanks. Previous acute migraine medication trials: Tylenol- not effective. Sumatriptan 100 mg tab cause chest discomfort. Acute migraine medication contraindications: None at this time For cluster headache prevention medication: Preventative medications should be taken routinely as prescribed for best effect, it may take several weeks for full effect to take effect. Continue Verapamil ER 100mg qhs, as this has helped some, but dose can not be raised due to risk for hypotension. Start Emgality 300 mg subcu every month during cluster headache episode. Patient request RN education/administration- we will [place] [facility] [place] be delivered to clinic directly. Previous migraine prevention medication trials: None Migraine prevention medication contraindications: caution w/ Aimovig/qulipta- d/t constipation risk. Will follow-up upon review of above and patient to follow-up in clinic in 3-4 months or sooner prn. Orders: Orders TSH reflex Free T4 Today R79.89 - Other specified abnormal findings of blood chemistry Vitamin D 25-OH (D2 and D3) Today E55.9 - Vitamin D deficiency, unspecified Medications: New rizatriptan max 2 tabs per day or 4 tabs per week 5 - 10 mg (0.5 - 1 x 10 mg) PO Q2H 30 days PRN 12 tabs 3RF migraine headache galcanezumab-gnlm (Emgality) (3 mL) 300 mg subcutaneously monthly; send order to in-house pharmacy for it to be [place] [facility] [place] 30 days 3 mL 6RF G44.009 - Cluster headache syndrome, unspecified, not intractable Oxygen Home Use 12-15 LPM via non-rebreather x's 20 minutes prn onset of cluster headache attack. Supply M and E tanks. 1 ea 11RF Acute cluster headache treatment G44.009 - Cluster headache syndrome, unspecified, not intractable Discontinued carbamazepine ER Discontinued Reason: Doctor's Order 100 mg PO BID 30 days 60 caps 3RF sumatriptan succinate may repeat x's 1 Discontinued Reason: Doctor's Order 6 mg (0.5 mL) subcut ONCE 14 days PRN 7 mL 3RF cluster headache G44.099 - Other trigeminal autonomic cephalgias (TAC), not intractable sumatriptan succinate Discontinued Reason: Doctor's Order (0.5 - 1 x 100 mg) 50 - 100 mg orally at onset of headache, may repeat in 2 hrs PRN; max 2 tabs per day (may take with Tylenol) 30 days 9 tabs 6RF migraine headache G44.099 - Other trigeminal autonomic cephalgias (TAC), not intractable Coding Level of Care Code Est Pt Level 4 (67417) Diagnoses Cluster headache G44.009 Autonomic attacks G40.109 Trigeminal autonomic cephalgias G44.099
--- OUTSIDE RECORDS SUMMARY | 2024-11-03 11:09 | XMS_ITS | Clinical Summary ---
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 1 Tube 1 05/11/2013 Active Social History Tobacco Use Types Packs/Day Years Used Date Smoking Tobacco: Every Day Alcohol Use Standard Drinks/Week Comments No 0 (1 standard drink = 0.6 oz pur e alcohol) Sex and Gender Information Value Date Recorded Sex Assigned at Not on file Legal Sex Male 11:36 AM PDT Gender Identity Not on file Sexual Orientation Not on file Last Filed Vital Signs Vital Sign Reading Time Taken Comments Blood Pressure 110/70 05/11/2013 11:49 AM EDT Pulse 60 05/11/2013 11:49 AM EDT Temperature 36.6 ??C (97.8 ??F) 05/11/2013 11:49 AM E DT Respiratory Rate 16 05/11/2013 11:49 AM EDT Oxygen Saturation - - Inhaled Oxygen Concentration - - Weight 68.9 kg (152 lb) 05/11/2013 11:49 AM EDT Height 167.6 cm (5' 6 ) 05/11/2013 11:49 AM EDT Body Mass Index 24.53 05/11/2013 11:49 AM EDT Plan of Treatment Not on file Insurance [facility] Member Subscriber Plan / Payer (Ef fective 2013-Present) Name:Lucas Blunt Relation to Subscriber:Self Name:Lucas Blunt Payer ID:[id number] Group ID:[id number] Type:Medicaid Address: [facility] [address] [place] [address]
== END 2024-11-03 11:18 | disposition home or self-care (01) ==
PROVIDERS: PCP Internal Medicine; Visit Provider Nurse Practitioner Family
DX: G44.009 Cluster headache syndrome, unspecified, not intractable (principal); G40.109 Localization-related (focal) (partial) symptomatic epilepsy and epileptic syndromes with simple partial seizures, not intractable, without status epilepticus; G44.099 Other trigeminal autonomic cephalgias (TAC), not intractable
CPT/HCPCS: 99214

== ENCOUNTER → 2024-11-03 10:18 | Outpatient (BNVA) | payer OTHER, SELFPAY | PROVIDERS: PCP Internal Medicine; Visit Provider Nurse Practitioner Family ==

== ENCOUNTER 2024-12-20 15:46 | Outpatient (AMB) | payer OTHER, SELFPAY ==
--- NOTE | 2024-12-20 15:56 | MHC.PC.OV ---
Vital Signs 12/20/24 15:57 Height 5 ft 6 in Weight 155 lb 3.2 oz BMI 25.0 BP 116/68 Blood Pressure Location Lt brachial Position Sitting Respiration 18 Pulse 64 Pulse Source Pulse Oximeter Temp 97.7 F Temp Source Temporal Artery Scan Pulse Oximetry (%) 98 Oxygen Delivery Method Room Air Intake Visit Reasons: physical exam Director Hair Required: Yes Director Hair Language: Retail And Promotions Coordinator Name: Used tablet- Aileen [id number] Accompanied by: Self / Same As Patient Allergies No Known Allergies [No Known Allergies*] Allergy (Verified 12/20/24 16:24) Medication List - Last Reconciled 12/20/24 by Maria Daugherty MD acetaminophen 1,000 mg PO Q6H PRN ferrous sulfate 325 mg PO DAILY 30 days galcanezumab-gnlm (Emgality) 300 mg subcutaneously monthly; send order to in-house pharmacy for it to be administered by [facility] neuro RN 30 days hydrocortisone 2.5% 1 appl topical BID PRN ibuprofen 600 mg PO QID PRN montelukast 10 mg PO DAILY PRN Oxygen Home Use 12-15 LPM via non-rebreather x's 20 minutes prn onset of cluster headache attack. Supply M and E tanks. pantoprazole 40 mg PO DAILY rizatriptan 5 - 10 mg (0.5 - 1 x 10 mg) PO Q2H PRN 30 days sucralfate 10 mL PO BID 30 days sumatriptan succinate 100 mg PO DIRECTED Tobacco use date assessed: 12/20/24 Dental Screening Dental Screen Date: 12/20/24 Did you have a dental visit in the last 12 months?: Yes Did you have a dental problem in the last 6 months where you did not have access to dental care?: No Was dental information given to patient?: Patient has dentist HPI HPI Comments History of Present Illness Details The patient is a 49-year-old male presenting for a physical examination and medication refills. He experiences recurring migraines, for which he uses Emgality injections and sumatriptan or risatriptan during acute episodes. He is also managing gastroesophageal reflux disease (GERD) with pantoprazole and carafate. His past medical history includes hyperthyroidism, previously uncontrolled, leading to a requirement for laboratory tests to reassess thyroid function and iron levels, the latter concerning potential anemia. He has undergone right rotator cuff surgery indicating a history of musculoskeletal issues. The social history reveals minimal alcohol intake, smoking, and lifestyle factors that may cause reflux symptoms. He reports a PHQ-9 score indicative of mild depression without active psychiatric treatment. - Advised Tetanus vaccination, available with nurse visit - Colonoscopy completed in 2021 with normal results - Scheduled laboratory evaluation for thyroid function and hemoglobin levels [facility] Medical History Arthritis Cough Chronic GERD Hematemesis Right foot pain Vertigo Family history of hypertension Right sided sciatica Elevated MCV Hypovitaminosis D Surgical History S/P right rotator cuff repair Hx of colonoscopy History of esophagogastroduodenoscopy (EGD) No pertinent past surgical history Family History Father No problems noted. Mother Hypertension CVD (cardiovascular disease) Social History Housing: Apartment Alcohol intake: current Alcohol intake frequency: a few times a month Alcohol type: beer Patient Tobacco Use Status: Current everyday Tobacco user Tobacco use type: Cigarette Cigarette Packs Per Day: 1 Cigarettes Per Day: 20 e-Cigarette/Vaping Use: Never Used Second Hand Smoke Exposure: Yes service: No Current occupational status: employed Current occupational exposures/hazards: No Cognitive needs: No Hearing needs: No Vision needs: Yes (Glasses) Questionnaire PHQ-9 Over the last 2 weeks, how often have you been bothered by any of the following problems? 1. Little interest or pleasure in doing things: not at all 2. Feeling down, depressed, or hopeless: more than half the days 3. Trouble falling or staying asleep, or sleeping too much: nearly every day 4. Feeling tired or having little energy: nearly every day 5. Poor appetite or overeating: several days 6. Feeling bad about yourself - or that you are a failure or have let yourself or your family down: several days 7. Trouble concentrating on things, such as reading the newspaper or watching television: several days 8. Moving or speaking so slowly that other people could have noticed. Or the opposite - being so fidgety or restless that you have been moving around a lot more than usual: not at all 9. Thoughts that you would be better off or of hurting yourself in some way: not at all Total score: 11 Depression Screening Interpretation: Positive Depression Screening Follow-up: Existing condition, Follow-up Visit Requested and Declines treatment Depression Screening Done: Yes 88643 - PHQ-9 Billing: Yes Source: Developed by Drs. Ish Velazco, Leda Lara, Nate Schaefer and colleagues, with an educational neema from [employer] Thrive Questionnaire Date Thrive assessed: 12/20/24 I am a: Patient What is your living situation today?: I have a steady place to live Within the past 12 months, did the food you bought not last and you didn't have the money to get more?: Never true Within the past 12 months, did you worry whether your food would run out before you got money to buy more?: Sometimes True Do you have trouble paying for medicines?: No Do you have trouble getting transportation to medical appointments?: No Do you have trouble paying your heating and electricity bill?: No Do you have trouble taking care of your child, family member or friend?: No Do you have trouble with day-to-day activities such as bathing, preparing meals, shopping, managing finances, etc.?: No Are you currently unemployed and looking for a job?: No Are you interested in more education?: No Please select the resources that you would like help with: None Currently or been in a relationship where the following occur: No concerns reported THRIVE Score: 1 AUDIT C Alcohol Use Questionnaire (AUDIT-C) 1. How often do you have a drink containing alcohol?: 2-4 times a month 2. How many drinks containing alcohol do you have on a typical day when you are drinking?: 5 or 6 3. How often do you have six or more drinks on one occasion?: Weekly Total Score: 7 Score Reviewed/Action Taken: Yes (Advise to cut down on drinking alcohol) DECLAN-7 AMB Questionnaire DECLAN-7 Date DECLAN - 7 assessed: 12/20/24 Feeling nervous, anxious, or on edge: 3 = Nearly every day Not being able to stop or control worryin = Several days Worrying too much about different things: 1 = Several days Trouble relaxin = Not at all Being so restless that it is hard to sit still: 3 = Nearly every day Becoming easily annoyed or irritable: 0 = Not at all Feeling afraid as if something awful might happen: 0 = Not at all Total DECLAN-7 score (0-4 normal; 5-9 mild; 10-14 moderate; 15-21 severe): 8 Source: Developed by Drs. Ish Velazco, Leda Lara, Nate Schaefer and colleagues, with an educational neema from [employer] DECLAN-7 Assessment Billing DECLAN-7 Assessment Tool: DECLAN-7 Assessment 40076 Review of Systems Const All systems reviewed & are unremarkable except as noted in HPI and below Card Denies chest pain at rest, Denies chest pain with activity, Denies edema, Denies irregular heart rhythm, Denies claudication, Denies dyspnea, Denies dyspnea on exertion, Denies orthopnea, Denies paroxysmal nocturnal dyspnea and Denies slow heart rate Resp Denies cough, Denies dyspnea and Denies dyspnea on exertion GI Denies abdominal pain, Denies change in bowel habits, Denies excessive flatus, Denies nausea and Denies vomiting Denies urinary hesitancy, Denies urinary incontinence and Denies urinary urgency Musc Denies abnormal gait, Denies atrophy, Denies deformity and Denies limited range of motion Skin/Breast Denies bleeding lesions, Denies changing lesions and Denies rash Neuro Denies abnormal gait and Denies lack of coordination Physical exam (Primary Care) Vital Signs: Last Vital Signs Temp 97.7 F 12/20/24 15:57 Pulse 64 12/20/24 15:57 Resp 18 12/20/24 15:57 BP 116/68 12/20/24 15:57 Pulse Ox 98 12/20/24 15:57 Oxygen Delivery Method Room Air 12/20/24 15:57 BMI result Body Mass Index 25.0 Tobacco/Smoking Status: Tobacco use Status Tobacco use date assessed 12/20/24 12/20/24 16:18 Patient Tobacco Use Status Current everyday Tobacco 12/20/24 16:18 Tobacco use type Cigarette 12/20/24 16:18 e-Cigarette/Vaping Use Never Used 12/20/24 16:18 PHQ-9: PHQ-9 Score PHQ-9: Total score 11 12/20/24 16:36 Depression Screening Interpretation: Positive Depression Screening Follow-up: Existing condition, Follow-up Visit Requested and Declines treatment Thrive Assessment: Date of Thrive Assessment Date Thrive assessed 12/20/24 12/20/24 16:18 Currently or been in a relationship where the following occur: No concerns reported [facility] Head: Yes normal to inspection, Yes normocephalic and Yes atraumatic Ears: external ears normal Eyes General: appearance normal, both eyes and all related structures Eyelids: Yes eyelids normal Conjunctivae: conjunctivae normal Neck Neck: Yes normal visual inspection and Yes supple Resp Effort & Inspection: normal respiratory effort Auscultation: clear to auscultation bilaterally Cardio Jugular venous distension: no JVD Rate: regular rate Rhythm: regular rhythm Heart sounds: S1 normal heart sound present and S2 normal heart sound present GI Inspection: Yes normal to inspection Palpation (GI): Soft to palpation and nontender Auscultation: normal bowel sounds Skin General skin exam: no rashes or lesions noted Neuro General: no focal motor deficits Extrem General: Yes full ROM Psych Appearance: grossly normal Coding Level of Care Code Est Pt Prev Care 40-64y(38485) Diagnoses Physical exam Z00.00 Mild major depression F32.0 Additional Codes DECLAN-7 Assessment Billing - DECLAN-7 Assessment Tool: DECLAN-7 Assessment 81808 ([id number]) PHQ-9 - 96835 - PHQ-9 Billing: Yes ([id number]) Time Spent (min) 32 Assessment & Plan Assessment & Plan (1) Physical exam: Code(s): Z00.00 - Encounter for general adult medical examination without abnormal findings Category: Medical (2) Mild major depression: Code(s): F32.0 - Major depressive disorder, single episode, mild Category: Medical Plan The patient will continue with the current migraine prophylaxis and abortive medication regimen. GERD management with pantoprazole and lifestyle modifications, like reducing alcohol intake, will remain in place. Follow-up laboratory tests for thyroid and hemoglobin levels are scheduled to assess ongoing management needs. Further intervention for mild depression is not warranted at this time by pharmacotherapy, but monitoring will continue. Tetanus vaccination is deferred to a future nurse visit. Patient was informed and verbally consented to the use of an ambient scribe for clinic note documentation during this visit. I discussed with the patient the importance of continuing his current migraine therapy with Encality and triptans, highlighting how these medications have contributed to managing his symptoms. We reviewed the significance of staying compliant with GERD treatment and the need for lifestyle modifications to prevent symptom exacerbation. Tetanus immunization was advised and can be scheduled via a nurse visit. The patient was informed of the need to perform additional lab tests to reassess thyroid functionality and iron levels, ensuring that treatment aligns with current health requirements. Mild depression signs were acknowledged, with no immediate changes in management plans. We addressed healthy lifestyle practices, notably decreased tobacco and alcohol consumption. Orders: Orders Vitamin D 25-OH Total Today E55.9 - Vitamin D deficiency, unspecified IRON PROFILE Today D64.9 - Anemia, unspecified Vitamin B12 and Folate Today E53.8 - Deficiency of other specified B group vitamins Thyroid Stimulating Hormone Today R79.89 - Other specified abnormal findings of blood chemistry Comprehensive [place]. Panel Fast Today G43.B0 - Ophthalmoplegic migraine, not intractable Lipid Panel Today E78.5 - Hyperlipidemia, unspecified Complete Blood Count Auto Diff Today D64.9 - Anemia, unspecified Free T4 (Free Thyroxine) Today R79.89 - Other specified abnormal findings of blood chemistry Medications: Changed From montelukast 10 mg PO DAILY PRN Cough To montelukast 10 mg PO DAILY 90 days PRN 90 tabs 1RF Cough Refilled ferrous sulfate 325 mg PO DAILY 30 days 30 tabs 1RF D50.9 - Iron deficiency anemia, unspecified Patient Instructions: - Continue current migraine and GERD medications as prescribed - Schedule and get tetanus vaccination at your convenience - Abstain or limit alcohol consumption to manage GERD symptoms - Undergo lab testing for thyroid and hemoglobin as instructed - Notify me of any changes in symptoms or concerns regarding your medications - Maintain awareness of mild depression, seek help if symptoms worsen
[2024-12-20 15:57] VITALS: BP 116/68; PULSE 64; RESP 18; TEMP 36.5; O2SAT 98; BMI 25.0
--- OUTSIDE RECORDS SUMMARY | 2024-12-20 17:34 | XMS_ITS | Clinical Summary ---
Author Organization [facility] Address [address] [place] [address] Care Team Providers Care Forensic Technician Name Role Phone Unavailable Primary Care Provider [...] Plan of Treatment Not on file Insurance [facility] Member Subscriber Plan / Payer (Ef fective 2013-Present) Name:Lucas Blunt Relation to Subscriber:Self Name:Lucas Blunt Payer ID:[id number] Group ID:[id number] Type:Medicaid Address: [facility] [address] [place] [address]
== END 2024-12-20 16:35 | disposition home or self-care (01) ==
LOC: HO.HMCH 15:46
PROVIDERS: PCP Internal Medicine; Visit Provider Internal Medicine
DX: Z00.00 Encounter for general adult medical examination without abnormal findings (principal); F32.0 Major depressive disorder, single episode, mild

== ENCOUNTER → 2024-12-20 15:46 | Outpatient (BNVA) | payer OTHER, SELFPAY | PROVIDERS: PCP Internal Medicine; Visit Provider Internal Medicine | DX: Z00.00 Encounter for general adult medical examination without abnormal findings (principal); F32.0 Major depressive disorder, single episode, mild; K21.9 Gastro-esophageal reflux disease without esophagitis; Z79.899 Other long term (current) drug therapy | CPT/HCPCS: 96127 ==